=== PATIENT | female | born 1980 | race Caucasian/White ===

== ENCOUNTER 2019-07-10 10:30 | Outpatient (RCR) | payer OTHER, BC, SELFPAY ==
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
--- NOTE | 2019-07-02 11:08 | PCOTNOTE ---
Patient called and cancelled OT tx today. She received an injection at her doctor appt. today and he advised that she cancelled therapy today.
--- NOTE | 2019-07-10 11:29 | OTOPEVAL ---
OCCUPATIONAL THERAPY DISCHARGE SUMMARY 07/10/2019 Thank you for referring this patient to [facility] [place]. As described below, Ruby has improved with AROM of the (R) forearm, wrist, and hand. She continues to have limitations due to pain, which made minimal improvement with skilled intervention. Today Ruby is independent with ROM and strengthening HEP and has a 3 week plan to wean off the brace and incorporate the (R) UE into more functional, every-day tasks. Please review, sign, date and return this discharge note YAHIR. I agree with and certify that the following plan of care is medically necessary. Referring Physician Date Referring Provider: Austin Amos MD *OT Outpatient Re-Evaluation Diagnosis Chronic right wrist pain Onset Mar 2017 Additional Evaluation Detail Ruby has been participating in outpatient OT since 06/13/19. Therapy has included aquatic treatment for CRPS and land treatment for use of modalities, manual therapy, ROM exercises, and strengthening to facilitate return to functional use. Subjective Information Ruby reports everything is Query Text:As Reported By Patient/ gotten better - noting Family improvements in flexibility, ROM, and strength. She has been trying to wean off the brace, but still wears it at work or in crowded places. Pain Assessment Timing of Pain Assessment Timing of Pain Assessment Re-assessment Pain Scale Pain Scale Used Numeric (1 - 10) Self Report Pain Assessment Right Wrist(s) Reported Pain Level 3 Pain Description Aching,Dull,Soreness,Tightness Pain Frequency Chronic Current Pain Intensity 3 Lowest Pain Intensity 3 Greatest Pain Intensity 6 Pain Score Pain Score 3: Self Report Additional Pain Score Comments Pain at rest has remained at 3 /10 since SOC. Pain at worst has reduced from 9/10 to 6/10 since SOC. With gentle AROM pain increases to 4/10. With PROM pain increases to 6/ 10. Upper Extremity Range of Motion Elbow/Forearm Range of Motion Right Forearm Supination - Active 70 Forearm Supination - Passive 80 Forearm Pronation - Active 85 Elbow/Forearm Range of Motion Comments Supination improved from 45* Pronation improved from 85* Wrist Range of Motion Right Wrist Flexion - Active
== END 2019-07-13 15:36 | disposition home or self-care (01) ==
LOC: ANHOT 10:30
PROVIDERS: PCP Internal Medicine
DX: M25.531 Pain in right wrist (principal); G89.29 Other chronic pain
CPT/HCPCS: 97018; 97035; 97110; 97113; 97140; 97165

== ENCOUNTER 2020-02-28 07:26 | Outpatient (RCR) | payer OTHER, BC, SELFPAY ==
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
--- NOTE | 2020-03-25 09:07 | OTOPEVAL ---
OCCUPATIONAL THERAPY RE-EVALUATION AND PROGRESS REPORT Thank you for referring Ruby Mary to [facility].? The patient is scheduled to be seen for continued occupational therapy?2x/week for 4 weeks beginning week of 04/07/20 due to scheduling conflicts. Please review, sign, date and return this Re-Evaluation Report YAHIR. I agree with and certify that the following plan of care is medically necessary. Referring Physician Date Referring Provider: Austin Amos MD *OT Outpatient Re-Evaluation Evaluation Information Problem Diagnosis Wrist pain s/p right ulnar sensory nerve neurolysis 02/12 Additional Evaluation Detail Ruby has been participating in outpatient OT s/p nerve neurolysis. OT has been focusing on ROM, nerve gliding , scar mgmt, and desensitization. Subjective Information Patient reports that her ROM Query Text:As Reported By Patient/ has improved, noting improved Family supination and wrist motions. She states her tightness is improved as she has more flexibility. She continues to have shooting pain to the tip of the pinky with ulnar deviation. She also notes that her sensitivity improved from severe to moderate . Pain Assessment Timing of Pain Assessment Timing of Pain Assessment Re-assessment Pain Scale Pain Scale Used Numeric (1 - 10) Self Report Pain Assessment Right Wrist(s) Reported Pain Level 3 Pain Description Soreness,Tightness Pain Frequency Continuous Lowest Pain Intensity 3 Greatest Pain Intensity 10 Pain Score Pain Score 3: Self Report Additional Pain Score Comments Patient states her pain is the worst at night, noting an instance of having 10/10 pain at night, describing the pain as burning and on fire . Interventions Used Interventions Used By Clinicians Exercise,Heat Upper Extremity Range of Motion Elbow/Forearm Range of Motion Right Elbow Flexion - Active 140 Elbow Extension - Active 0 Forearm Supination - Active 65 Forearm Supination - Passive 75 Forearm Pronation - Active 75 Forearm Pronation - Passive 85 Elbow/Forearm Range of Motion Comments -Active supination improved by 25* -Passive supination improved by 15* -Active pronation im
--- NOTE | 2020-04-16 10:33 | PCOTNOTE ---
Patient never called to schedule her appointments. Called the patient today and she reports that she was diagnosed with COVID-19. Informed her that her re-eval/POC update date falls on 04/30/20 and she will need to be seen and/or reassessed by that date. She plans to call to schedule when her quarantine is over.
--- NOTE | 2020-05-08 11:31 | OTOPEVAL ---
OCCUPATIONAL THERAPY DISCHARGE NOTE 05/08/2020 Ruby was initially evaluated on 02/28/20 and seen for 5 subsequent treatment visits. A re-evaluation report was sent 03/25/20 (please refer to this for more detailed progress update). Ruby has not returned for treatment since this re-evaluation on 03/25/20 due to COVID-19. Ruby reports that she has been completing her AROM, PROM, and gentle strengthening (with 2 lbs weights) regularly. She has also been working on her desensitization HEP. She states that due to getting a new job she will be unable to return for therapy sessions, but is also independent and doing well with her home program. The goals have not been assessed since 03/25/20. Discharging today with goals not met. Thank you for referring Ruby Mary to [facility]. Please review, sign, date and return this D/C Note YAHIR. I agree with and certify that the following plan of care is medically necessary. Referring Physician Date Referring Provider: Austin Amos MD
== END 2020-05-08 11:57 | disposition home or self-care (01) ==
LOC: ANHOT 07:26
PROVIDERS: PCP Internal Medicine
DX: G56.41 Causalgia of right upper limb (principal); M25.531 Pain in right wrist
CPT/HCPCS: 97018; 97110; 97140; 97165

== ENCOUNTER → 2020-03-20 11:13 | Outpatient (CLI) | payer BC, SELFPAY ==
--- NOTE | ~2020-03-20 | MM_ITS ---
EXAMINATION: MM screening [facility] BI w anuj HISTORY: Screening mammogram TECHNIQUE: Craniocaudal and mediolateral oblique 3-D tomosynthesis images were obtained and synthetic 2-D images were generated. CAD analysis was submitted and interpreted. COMPARISON: 05/30/2018, 06/05/2014 BREAST PARENCHYMAL COMPOSITION: There are scattered areas of fibroglandular density. FINDINGS: There is no evidence of suspicious mass, calcification, or architectural distortion to sugg est malignancy in either breast. There has been no suspicious interval change. IMPRESSION: 1. No mammographic evidence of malignancy. 2. Recommend routine screening mammography in one year. BI-RADS Category 1: Negative Reviewed, dictated and finalized at location [facility]. [employer]
== END ==
PROVIDERS: PCP Physician Assistant; Visit Provider Physician Assistant
DX: Z12.31 Encounter for screening mammogram for malignant neoplasm of breast (principal)
CPT/HCPCS: 77063; 77067

== ENCOUNTER 2020-05-28 20:53 | Inpatient (IN) | payer BC, SELFPAY ==
--- NOTE | ~2020-05-28 | CT_ITS ---
EXAMINATION: CT abdomen pelvis w con DATE: 05/28/2020 21:52 INDICATION: Epigastric abdominal pain radiating to back following ERCP at [facility]. TECHNIQUE: Computed tomography (CT) of the abdomen and pelvis was performed with 100 cc Omnipaque 350 intravenous contrast. Automated exposure control and iterative reconstruction technique were employe d. Exam dose: 980.54 mGy-cm total exam DLP. COMPARISON: 01/22/2019 CT abdomen pelvis FINDINGS: Normal heart size. No pericardial or pleural effusion. There is discoid scarring in the mid dle lobe and left lower lobe, stable since 01/22/2019. No consolidation at the lung bases. Relatively stable approximately 2.3 cm hypoattenuating central right hepatic lesion. Several probable subcentimeter hepatic cysts. There is pneumobilia, new finding since 01/22/2019. Status post cholecystectomy. No interval hepatic space-occupying mass lesion since 01/22/2019. Normal splenic size. No pancreatic m ass lesion, calcification or ductal dilatation. Normal morphology of the adrenal glands. No renal mass lesion or urinary tract calculus or hydroureteronephrosis. The uterus, adnexal areas and urinary bladder are unremarkable. Normal caliber of the abdominal aorta. No intraperitoneal or retroperitoneal or pelvic mass lesion or adenopathy. There is mild free fluid in the dependent left pelvic area, stable since 01/22/2019. The appendix is not visualized, likely secondary to appendectomy. No bowel obstruction, bowel wall thickening, pneumatosis or intraperitoneal free air. Small fat-containing umbilical hernia. IMPRESSION: Pneumobilia, new since 01/22/2019 Status post cholecystectomy Stable mild free fluid collection in the dependent left pelvis, not significantly changed since 2018 Reviewed, dictated and finalized at [facility]. Reviewed, dictated and finalized at [facility]. 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
[2020-05-28 20:58] VITALS: BP 170/95; PULSE 73; RESP 14; TEMP 36.5; O2SAT 100
[2020-05-28] MEDS: MORPHINE SULFATE (*CRX) 4 MG/ML INJ IV PUSH (21:06)
[2020-05-28] MEDS: SODIUM CHLORIDE 0.9% IV 1,000 ML 999 ML IV CONT (21:06)
[2020-05-28 21:13] LABS: Basophils Percent Auto 0.3 % (0.2-1.2); Eosinophils Absolute Auto 0.2 K/mm3 (0-0.3); Eosinophils Percent Auto 2.1 % (0-4.4); Hematocrit 42.4 % (37.0-47.0); Hemoglobin 14.3 g/dL (12.0-15.0); Immature Granulocyte Absolute 0.01 K/mm3 (0.00-0.031); Immature Granulocyte Percent A 0.1 % (0-0.5); Lymphocytes Absolute Auto 2.23 K/mm3 (0.9-3.2); Lymphocytes Percent Auto 31.7 % (18.3-44.2); Mean Corpuscular HGB Conc 33.7 g/dl (32-36); Mean Corpuscular Hemoglobin 29.9 pg (26-34); Mean Corpuscular Volume 88.7 fl (80-100); Mean Platelet Volume 9.9 fl (7.4-10.4); Monocytes Absolute Auto 0.6 K/mm3 (0.1-0.6); Monocytes Percent Auto 7.8 % (2.6-8.5); Neutrophils Absolute Auto 4.1 K/mm3 (1.3-6.7); Platelet Count Result 221 k/mm3 (150-375); Red Blood Count 4.78 M/mm3 (4.2-5.4)
[2020-05-28 21:23] LABS: Partial Thromboplastin Time 28.4 SECONDS (22.3-36.8); Prothrombin Time 13.7 Seconds (11.1-14.7)
[2020-05-28 21:26] LABS: Alanine Aminotransferase 16 U/L (4-35); Albumin Level 4.3 g/dL (3.5-5.1); Alkaline Phosphatase 110 U/L (38-126); Anion Gap 8 mmol/L (8-16); Aspartate Amino Transferase 46 U/L (14-36); Bilirubin,Total 0.9 mg/dL (0.2-1.3); Blood Urea Nitrogen 4 mg/dL (7-17); Calcium 9.3 mg/dL (8.4-10.2); Carbon Dioxide 27 mmol/L (22-30); Chloride 103 mmol/L (98-107); Estimated CRCL calculation 110 ml/min; Estimated Glomerular Filt Rate > 60; Glucose 95 mg/dL (65-105); Potassium 3.6 mmol/L (3.4-5.0); Sodium 138 mmol/L (137-145)
[2020-05-28 21:40] LABS: Lipase 7074 U/L (23-300)
--- NOTE | 2020-05-28 21:44 | ED.GENADULT ---
HPI - General Adult General Chief complaint: Unspecified Stated complaint: Pain after procedure Time Seen by Provider: 05/28/20 21:00 History of Present Illness HPI narrative: Patient is a 40-year-old female who presents ER with sudden onset epigastric pain. Occurred this evening at 8 PM just prior to arrival. Epigastric and sharp. Radiates to her back. Patient underwent ERCP today for biliary stent removal. Patient reports having a strawberry banana smoothie earlier this evening. Denies fevers or chills or sweats. Pain is worse with any type of movement. Has not found any alleviating factors. She did take 1 tramadol prior to arrival. Related Data Home Medications Medication Instructions Recorded Confirmed oxycodone 04/21/19 04/23/20 dicyclomine 10 mg capsule 10 mg PO TID 03/20/20 04/23/20 famotidine 40 mg tablet 40 mg PO DAILY 03/20/20 04/23/20 zonisamide 50 mg capsule 50 mg PO DAILY 03/20/20 04/23/20 Allergies Allergy/AdvReac Type Severity Reaction Status Date / Time gabapentin Allergy Intermediate Nausea and Verified 05/28/20 21:02 Vomiting levofloxacin Allergy Intermediate Dizziness Verified 05/28/20 21:02 fentanyl Allergy Unknown Itching Verified 05/28/20 21:02 tramadol Allergy Unknown Unknown Verified 05/28/20 21:02 hydrocodone AdvReac Intermediate Itching Verified 05/28/20 21:04 sumatriptan AdvReac Intermediate Dyspnea / Verified 05/28/20 21:02 SOB Review of Systems Review of Systems: All systems reviewed & are unremarkable except as noted in HPI and below Constitutional: Constitutional: Denies chills and Denies fever(s) Gastrointestinal: Gastrointestinal: Reports abdominal pain, Denies nausea and Denies vomiting PMFSH Past Medical History Medical History Anxiety Asthma Benign brain tumor Bronchitis Chlamydia Endometriosis GERD (gastroesophageal reflux disease) History of torn meniscus of right knee Menometrorrhagia Migraines Peripheral neuropathy Nerve damage to rt hand Trichomonas infection Surgical History Surgical History History of appendectomy History of brain surgery Brain tumor removal History of cholecystectomy History of colonoscopy History of right knee surgery History of tonsillectomy History of tubal ligation Family History Family History Father Hypertension Family history of chronic obstructive pulmonary disease Mother Hypertension Sibling Patient's brother is in good health Other Family history of elevated blood lipids Family history of malignant neoplasm Social History Social History Smoking packs per day: 1 Smoking cigarettes per day: 20.0 Years smoked: 20 Smoking pack-years: 20.00 Smoking status: Former smoker Second hand tobacco smoke exposure: No Smoking end date: 05/02/12 Alcohol intake: current Gender identity (if verbalized by the patient): Female Exam Narrative: Exam Narrative: GENERAL: Well-appearing, well-nourished, and in no acute distress. HEAD: Normocephalic, atraumatic. ENT: Mucous membranes moist. CHEST: Clear to auscultation. No respiratory distress. HEART: Regular rate and rhythm. Normal peripheral pulses. ABDOMEN: Soft, moderate epigastric tenderness with guarding, nondistended. EXTREMITIES: Normal range of motion. No edema. SKIN: Warm, dry, no rash. NEURO: Alert and oriented x3. PSYCH: Normal mood and affect. Course Course Emergency Course: Discussed with Nurse Coordinator Anitha with Dr. Butcher. No intervention required. If still having severe persistent pain in 72hrs she may need a repeat CT for a fluid collection. No beds at [facility]. If need additional recommendations or have issues they would like to be contacted at [phone] ext [phone]. Vital Signs Vital signs: Vital
[2020-05-28 22:28] VITALS: BP 137/79; PULSE 83; RESP 22; O2SAT 98
[2020-05-29] VITALS (8 sets, daily range): BP systolic 127–161; BP diastolic 62–101; PULSE 62–89; RESP 16–20; TEMP 36.5–36.6; O2SAT 99–100; BMI 34.2
[2020-05-29] MEDS: MORPHINE SULFATE (*CRX) 4 MG/ML INJ IV PUSH ×3 (00:10→08:21)
--- NOTE | 2020-05-29 01:00 | PC.NURSE ---
This patient, Ruby Mary, was admitted to [facility] Surg Room 309-01. Patient/family oriented to hospital policies and general routines including ID bracelet, bed and alarms, visiting hours, pain management, procedures, bathroom and other care routines, personal items, smoking policy, room service/diet, and visiting hours. Information on how to activate the Rapid Response Team has been discussed. Patient/Family are encouraged to report perceived risks to care and to ask questions if they do not understand what they are told or what they should do.
[2020-05-29] MEDS: SODIUM CHLORIDE 0.9% IV 1,000 ML 150 ML IV CONT ×3 (01:34→17:00)
[2020-05-29] MEDS: PANTOPRAZOLE SODIUM IV 40 MG VIAL IV PUSH ×2 (08:21→20:57)
[2020-05-29] MEDS: DICYCLOMINE HCL 10 MG CAPSULE PO ×3 (08:21→17:35)
--- NOTE | 2020-05-29 10:38 | PM.IMHP ---
H&P: HPI History of Present Illness Date/Time: 05/29/20 10:10 Chief Complaint: Abdominal pain Narrative: Date of Service 05/29/20 1010 The supervising physician for this history and physical is Dr Meghan Herrera. Ms. 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 She underwent ERCP with biliary stent placement for treatment of papillary stenosis on 05/26/[address] Butcher at [facility], then underwent her scheduled biliary stent removal yesterday 05/28/20. She reports she got home from [facility] around 5:00 p.m. yesterday, had a strawberry banana smoothie and went to bed to rest. She describes a sudden onset of severe epigastric/RUQ abdominal pain that woke her out of sleep around 8:30pm and took her breath away, radiated to her back with associated nausea and shortness of breath. She has been having issues since 2015 with intermittent nausea with any oral intake of foods, but in the last 5 months this has been a worsening, persistent issue for which she has been following with Dr Butcher and his PA Jessica Jamison at [facility]. Her evaluation began with an endoscopic ultrasound in January 2020 which demonstrated biliary papillary stenosis. She then underwent the stent placement as mentioned above. She reports nausea still which is a little improved, vomited last at [facility] yesterday but no emesis here. Dr Butcher's nurse was contacted by ED provider who mentioned there were no available beds at [facility], no intervention was indicated at this time, and if her pain should continue to be severe at the 72-hr arabella that he would recommend a repeat CT abdomen/pelvis to rule out fluid collection or abscess. Routine labs are grossly normal aside from lipase [address] abd/pelvis on arrival shows pneumobilia but no other acute findings, pancreas appears normal. She is admitted to the hospitalist service for pain control and to monitor elevated lipase. Review of Systems Review of Systems: Narrative: Sudden onset epigastric/RUQ pain several hours after ERCP for biliary stent removal. She describes nausea, no vomiting today. Pain is somewhat improved compared to last night but still present. She denies chest pain. She had shortness of breath with onset of pain but none today. No cough. Twelve systems were reviewed with pertinent positives and negatives as per HPI. Except as documented, all other systems were reviewed and are negative. [facility] Past Medical History Medical History Anxiety Asthma Benign brain tumor Biliary stenosis Bronchitis Chlamydia Endometriosis GERD (gastroesophageal reflux disease) History of torn meniscus of right knee Menometrorrhagia Migraines Peripheral neuropathy Nerve damage to rt hand Trichomonas infection Surgical History Surgical History History of appendectomy 2019 History of brain surgery Brain tumor removal - benign. 2013 History of cholecystectomy 2016 History of colonoscopy History of right knee surgery Due to right meniscal tear - as a teenager History of tonsillectomy 2010 History of tubal ligation 2015 Family History Family History Father Hypertension Family history of chronic obstructive pulmonary disease Mother Hypertension Sibling Patient's brother is in good health Other Family history of elevated blood lipids Family history of malignant neoplasm Social History Social History (Updated 05/29/20 @ 15:22 by Guillermina Wise PA-C) Social History: Ms. Mary lives at home with her and children in [place]. 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 She reports occasional alcohol use b
--- NOTE | 2020-05-29 12:07 | PCNSR ---
On 05/29/20, the student, Tamie Melara, provided care and [facility]. I have reviewed the student's documentation and agree with the findings.
[2020-05-29] MEDS: MORPHINE SULFATE (*CRX) 4 MG/ML INJ 2 MG IV PUSH (13:46)
--- NOTE | 2020-05-29 15:57 | PC.NURSE ---
Patient transferred to room 218. Report given to JERE Linton. All belongings sent with patient.
[2020-05-29] MEDS: traMADol HCL (*CRX) 50 MG TABLET PO (17:37)
[2020-05-29] MEDS: MORPHINE SULFATE (*CRX) 2 MG/ML INJ IV PUSH ×2 (18:39→23:41)
[2020-05-29] MEDS: ZONISAMIDE 25 MG CAPSULE 50 MG PO (21:14)
[2020-05-30] MEDS: SODIUM CHLORIDE 0.9% IV 1,000 ML 100 ML IV CONT ×3 (01:35→23:34)
[2020-05-30] MEDS: MORPHINE SULFATE (*CRX) 2 MG/ML INJ IV PUSH ×3 (03:57→18:51)
[2020-05-30] MEDS: ONDANSETRON INJ 4 MG/2 ML VIAL IV PUSH ×3 (04:04→19:55)
[2020-05-30 05:01] LABS: Basophils Percent Auto 0.4 % (0.2-1.2); Eosinophils Absolute Auto 0.1 K/mm3 (0-0.3); Eosinophils Percent Auto 1.8 % (0-4.4); Hemoglobin 12.4 g/dL (12.0-15.0); Immature Granulocyte Absolute 0.01 K/mm3 (0.00-0.031); Immature Granulocyte Percent A 0.2 % (0-0.5); Lymphocytes Absolute Auto 1.25 K/mm3 (0.9-3.2); Mean Corpuscular HGB Conc 33.5 g/dl (32-36); Mean Corpuscular Volume 89.4 fl (80-100); Monocytes Absolute Auto 0.3 K/mm3 (0.1-0.6); Monocytes Percent Auto 6.5 % (2.6-8.5); Neutrophils Absolute Auto 2.8 K/mm3 (1.3-6.7); Neutrophils Percent Auto 63.1 % (45.5-73.1); Platelet Count Result 165 k/mm3 (150-375); Red Blood Count 4.14 M/mm3 (4.2-5.4); White Blood Count 4.5 K/mm3 (4.5-10.0)
[2020-05-30 05:20] LABS: Alanine Aminotransferase 15 U/L (4-35); Albumin Level 3.4 g/dL (3.5-5.1); Alkaline Phosphatase 85 U/L (38-126); Anion Gap 6 mmol/L (8-16); Aspartate Amino Transferase 23 U/L (14-36); Bilirubin,Total 0.6 mg/dL (0.2-1.3); Blood Urea Nitrogen 3 mg/dL (7-17); Calcium 8.3 mg/dL (8.4-10.2); Carbon Dioxide 23 mmol/L (22-30); Chloride 107 mmol/L (98-107); Estimated CRCL calculation 125 ml/min; Estimated Glomerular Filt Rate > 60; Glucose 74 mg/dL (65-105); Lipase 100 U/L (23-300); Magnesium 1.4 mg/dL (1.6-2.3); Potassium 3.6 mmol/L (3.4-5.0); Sodium 136 mmol/L (137-145)
[2020-05-30 06:00] VITALS: BP 144/75; PULSE 75; RESP 18; TEMP 36.4; O2SAT 100
[2020-05-30] MEDS: MAGNESIUM SULFATE 3GM/D5W100ML 3 GM/100 ML BAG IVPB (08:18)
[2020-05-30] MEDS: DICYCLOMINE HCL 10 MG CAPSULE PO ×2 (08:28→16:39)
[2020-05-30] MEDS: ENOXAPARIN 40 MG/0.4 ML SYRINGE SUB-Q (08:53)
[2020-05-30] MEDS: PANTOPRAZOLE SODIUM IV 40 MG VIAL IV PUSH ×2 (09:53→20:00)
[2020-05-30] MEDS: oxyCODONE HCL (*CRX) 5 MG TAB IR PO (11:04)
[2020-05-30] MEDS: LORATADINE 10 MG TABLET PO (11:06)
--- NOTE | 2020-05-30 11:15 | PM.IMPN ---
Progress Note: A&P Assessment and Plan (1) Abdominal pain: Qualifiers: Abdominal location: right upper quadrant Qualified Code(s): R10.11 - Right upper quadrant pain Code(s): R10.9 - Unspecified abdominal pain Status: Acute Assessment and Plan: Sudden onset of epigastric, RUQ abdominal pain occurred several hours after ERCP and biliary stent removal 05/[address] Butcher at [facility]. ER provider spoke with Dr Butcher's office and it was recommended no intervention is needed at this time and her symptoms should improve gradually. He recommended if her pain is still severe in 72hrs from onset, consider repeat CT abdomen to ensure no fluid collection/abscess formation. CT abdomen/pelvis shows pneumobilia, otherwise no acute findings. Pancreas is unremarkable. At this point it is felt her pain is related with biliary stent removal and hopefully her symptoms will be self-limiting. Continue supportive care with pain control, IV hydration, and bowel rest. Monitor for clinical improvement. Clear liquid diet, advance as tolerated to low fat diet. Will try oxycodone today in attempts to wean from IV narcotics. (2) Biliary stenosis: Code(s): K83.1 - Obstruction of bile duct Status: Chronic Assessment and Plan: She has been following with hepatobiliary specialist at [facility] due to ongoing issues with nausea for months. She was diagnosed with papillary stenosis and underwent ERCP with biliary stent placement by Dr Butcher at [facility] 05/26/20 then subsequent removal of stents 05/28/20. According to her discharge papers she has with her, the procedure went as planned and there was good drainage noted after stent removal as expected. Follow up with Dr Butcher and his PAJessica in short-interval follow up after discharge. (3) Elevated lipase: Code(s): R74.8 - Abnormal levels of other serum enzymes Status: Acute Assessment and Plan: Lipase 7074 on arrival, now down to 100 today. This was an expected elevation after an ERCP. Her pancreas is normal on CT and I do not suspect she has acute pancreatitis at this time. Bilirubin and LFTs grossly normal aside from a mildly elevated AST at 46 yesterday, resolved today. We will continue supportive care with bowel rest and IV fluids. Monitor lipase and LFTs. (4) GERD (gastroesophageal reflux disease): Qualifiers: Esophagitis presence: esophagitis presence not specified Qualified Code(s): K21.9 - Gastro-esophageal reflux disease without esophagitis Code(s): K21.9 - Gastro-esophageal reflux disease without esophagitis Status: Chronic Assessment and Plan: Continue protonix. (5) Asthma: Qualifiers: Asthma severity: unspecified severity Asthma persistence: unspecified Asthma complication type: unspecified Qualified Code(s): J45.909 - Unspecified asthma, uncomplicated Code(s): J45.909 - Unspecified asthma, uncomplicated Status: Chronic Assessment and Plan: No evidence of respiratory distress. She can use Symbicort to sub for non-formulary Breo and albuterol if needed for shortness of breath. Subjective Date/time seen: 05/30/20 1030 Interval history: Ms. Mary is a 40yo F admitted for abdominal pain s/p ERCP with biliary stent removal. She is still having abdominal cramping but overall improved from when she came in. She tried some minimal amount of clear liquid tray (jello) for breakfast and had abdominal cramping pretty shortly after, same thing happened at lunch time. She denies nausea or vomiting today. She denies chest pain or shortness of breath. Review of Systems Review of Systems: All systems reviewed & are unremarkable except as noted in HPI and below Exam Narr
[2020-05-30 14:00] VITALS: BP 145/73; PULSE 70; RESP 16; TEMP 36.5; O2SAT 99
[2020-05-30] MEDS: ZONISAMIDE 25 MG CAPSULE 50 MG PO (20:03)
[2020-05-30 22:00] VITALS: BP 142/71; PULSE 70; RESP 18; TEMP 36.2; O2SAT 100
[2020-05-31] MEDS: MORPHINE SULFATE (*CRX) 2 MG/ML INJ IV PUSH (04:44)
[2020-05-31] MEDS: ONDANSETRON INJ 4 MG/2 ML VIAL IV PUSH ×3 (04:47→14:10)
[2020-05-31 05:27] LABS: Alanine Aminotransferase 11 U/L (4-35); Albumin Level 3.1 g/dL (3.5-5.1); Alkaline Phosphatase 73 U/L (38-126); Anion Gap 1 mmol/L (8-16); Aspartate Amino Transferase 19 U/L (14-36); Bilirubin,Total 0.5 mg/dL (0.2-1.3); Blood Urea Nitrogen 3 mg/dL (7-17); Calcium 8.1 mg/dL (8.4-10.2); Carbon Dioxide 27 mmol/L (22-30); Chloride 109 mmol/L (98-107); Estimated CRCL calculation 125 ml/min; Estimated Glomerular Filt Rate > 60; Glucose 81 mg/dL (65-105); Lipase 79 U/L (23-300); Magnesium 1.7 mg/dL (1.6-2.3); Potassium 3.6 mmol/L (3.4-5.0); Sodium 137 mmol/L (137-145)
[2020-05-31 05:43] VITALS: BP 134/93; PULSE 70; RESP 16; TEMP 36.1; O2SAT 100
[2020-05-31] MEDS: ENOXAPARIN 40 MG/0.4 ML SYRINGE SUB-Q (08:28)
[2020-05-31] MEDS: LORATADINE 10 MG TABLET PO (08:28)
[2020-05-31] MEDS: MAGNESIUM OXIDE 200 MG TABLET PO (08:28)
[2020-05-31] MEDS: PANTOPRAZOLE SODIUM IV 40 MG VIAL IV PUSH (08:28)
[2020-05-31] MEDS: DICYCLOMINE HCL 10 MG CAPSULE PO ×2 (08:28→12:23)
[2020-05-31] MEDS: SODIUM CHLORIDE 0.9% IV 1,000 ML 100 ML IV CONT (09:32)
[2020-05-31 14:00] VITALS: BP 145/82; PULSE 68; RESP 18; TEMP 36.2; O2SAT 100
--- NOTE | 2020-05-31 14:08 | PM.DS ---
DS: Admitting Diagnosis Admitting Diagnosis Admitting Diagnosis: Abdominal pain DS: Discharge Diagnosis Discharge Diagnosis (1) Abdominal pain: Qualifiers: Abdominal location: right upper quadrant Qualified Code(s): R10.11 - Right upper quadrant pain Code(s): R10.9 - Unspecified abdominal pain Status: Acute Assessment and Plan: Date of Admission 05/29/20 Date of Discharge/DOS 05/31/20 Ms. 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 She underwent ERCP with biliary stent placement for treatment of papillary stenosis on 05/26/[address] Butcher at [facility], then underwent her scheduled biliary stent removal 05/28/20. She reports she got home from [facility] around 5:00 p.m., had a strawberry banana smoothie and went to bed to rest, then experienced sudden onset of severe epigastric/RUQ abdominal pain that woke her out of sleep a few hours later around 8:30pm which took her breath away, radiated to her back with associated nausea and shortness of breath. She has been having issues since 2016 with intermittent nausea with any oral intake of foods, but in the last 5 months this has been a worsening, persistent issue for which she has been following with Dr Butcher and his PA Jessica Jamison at [facility]. Dr Butcher's nurse was contacted by ED provider who mentioned there were no available beds at [facility], no intervention was indicated at this time, and if her pain should continue to be severe at the 72-hr arabella that he would recommend a repeat CT abdomen/pelvis to rule out fluid collection or abscess. Routine labs are grossly normal aside from lipase [address] abd/pelvis on arrival shows pneumobilia likely from her instrumentation (ERCP) earlier that day but no other acute findings, and pancreas appears normal. She was admitted to the hospitalist service for pain control and to monitor elevated lipase. She was treated with supportive care to include bowel rest, IV hydration, antiemetics, and pain medications. She did continue to have some right upper abdominal cramping with even minimal bites of jello. Day of discharge, she had much less cramping but did describe nausea with even small amounts of food, improved with Zofran. No emesis here. Lipase improved from 7074 to 100 then to 74 on day of discharge. It is suspected that she does not have pancreatitis at this time given normal pancreas on CT imaging and elevated lipase being an expected finding within several hours after her ERCP. Bilirubin and LFTs remained grossly normal. No leukocytosis or fevers or CT findings to suggest infectious process. Ultimately, it is felt her abdominal pain is an exacerbation of an expected discomfort after her biliary stent placement and removal. She is encouraged to follow up with Dr Butcher or his PA, Jessica, as soon as possible. She is feeling improved and is hemodynamically stable for discharge on 05/31/20. Sudden onset of epigastric, RUQ abdominal pain occurred several hours after ERCP and biliary stent removal 05/[address] Butcher at [facility]. ER provider spoke with Dr Butcher's office and it was recommended no intervention is needed at this time and her symptoms should improve gradually. CT abdomen/pelvis shows pneumobilia, otherwise no acute findings. Pancreas is unremarkable. At this point it is felt her pain is related with biliary stent removal and hopefully her symptoms will be self-limiting. Treated with supportive care with pain control, IV hydration, and bowel rest. Monitored for clinical improvement. (2) Biliary stenosis: Code(s): K83.1 - Obstruction of bile duct Status: Chronic Assessment and Plan:
== END 2020-05-31 15:10 | disposition home or self-care (01) | DRG 947 ==
LOC: ANHED 05-29 00:06 → ANH3MEDSUR 05-29 00:22 → ANHTRC 05-30 13:13 → ANH3MEDSUR 06-03 16:40 → ANHTRC 06-03 16:40
PROVIDERS: Physician Assistant; Admitting Provider Internal Medicine; Emergency Provider Emergency Medicine; PCP Physician Assistant; Visit Provider Family Medicine
DX: G89.18 Other acute postprocedural pain (principal); K83.1 Obstruction of bile duct; R10.11 Right upper quadrant pain; R74.8 Abnormal levels of other serum enzymes; K21.9 Gastro-esophageal reflux disease without esophagitis; J45.909 Unspecified asthma, uncomplicated; G43.909 Migraine, unspecified, not intractable, without status migrainosus; G62.9 Polyneuropathy, unspecified; F41.9 Anxiety disorder, unspecified; Z79.899 Other long term (current) drug therapy; Z87.891 Personal history of nicotine dependence
CPT/HCPCS: 36415; 74177; 80048; 80053; 80076; 83690; 83735; 85025; 85610; 85730; 94640; 96361; 96374; 96375; 96376; 99285; A9270; C9113; G0378; J1650; J2270; J2405; J3475; J7030; Q9967

== ENCOUNTER → 2022-01-30 08:37 | Outpatient (CLI) | payer BC, SELFPAY ==
--- NOTE | ~2022-01-30 | MM_ITS ---
EXAMINATION: MM screening [facility] BI w anuj HISTORY: Screening mammogram TECHNIQUE: Craniocaudal and mediolateral oblique 3-D tomosynthesis images were obtained and synthetic 2-D images were generated. CAD analysis was submitted and interpreted. COMPARISON: 03/20/2020, 05/30/2018, 06/05/2014 BREAST PARENCHYMAL COMPOSITION: There are scattered areas of fibroglandular density. FINDINGS: There is no suspicious mass, calcification, or architectural distortion to suggest malignan cy in either breast. There has been no suspicious interval change. IMPRESSION: 1. No mammographic evidence of malignancy. 2. Recommend routine screening mammography in one year. BI-RADS Category 1: Negative Reviewed, dictated and finalized at location A.
== END ==
PROVIDERS: PCP Physician Assistant; Visit Provider Physician Assistant
DX: Z12.31 Encounter for screening mammogram for malignant neoplasm of breast (principal)
CPT/HCPCS: 77063; 77067

== ENCOUNTER 2022-04-09 15:37 | Outpatient (CLI) | payer BC, SELFPAY ==
[2022-04-09 16:50] LABS: Influenza A QL RT-PCR Negative (Negative); Influenza B QL RT-PCR Negative (Negative); RSV RNA, RT-PCR Negative (Negative); SARS-CoV-2 RNA PCR Positive
== END 2022-04-09 15:38 | disposition home or self-care (01) ==
LOC: ANHLAB 15:39
PROVIDERS: PCP Physician Assistant; Visit Provider Physician Assistant
DX: U07.1 COVID-19 (principal)
CPT/HCPCS: 87637

== ENCOUNTER 2023-07-09 09:39 | Outpatient (CLI) | payer BC, SELFPAY ==
--- NOTE | ~2023-07-09 | MM_ITS ---
EXAMINATION: MM screening [facility] BI w anuj HISTORY: Screening mammogram TECHNIQUE: Craniocaudal and mediolateral oblique 3-D tomosynthesis images were obtained and synthetic 2-D images were generated. CAD analysis was submitted and interpreted. COMPARISON: 01/30/2022, 03/20/2020 bilateral screening mammogram examinations BREAST PARENCHYMAL COMPOSITION: There are scattered areas of fibroglandular density. FINDINGS: There is no evidence of suspicious mass, calcification, or architectural distortion to sugg est malignancy in either breast. There has been no suspicious interval change. IMPRESSION: 1. No mammographic evidence of malignancy. 2. Recommend routine screening mammography in one year. BI-RADS Category 1: Negative Reviewed, dictated and finalized at location A.
== END 2023-07-09 09:40 ==
LOC: MICIMG 09:40
PROVIDERS: PCP Physician Assistant; Visit Provider Physician Assistant
DX: Z12.31 Encounter for screening mammogram for malignant neoplasm of breast (principal)
CPT/HCPCS: 77063; 77067

== ENCOUNTER 2023-07-11 17:48 | Outpatient (CLI) | payer BC, SELFPAY ==
--- NOTE | ~2023-07-11 | XR_ITS ---
Cervical Spine: AP, lateral, open-mouth views, with neutral, flexion, extension positioning Clinical History: Pain Findings: There is straightening of the normal cervical lordosis. The vertebral bodies and posterior elements appear intact. The intervertebral disc spaces are well maintained. Pre-vertebral soft tiss ues are unremarkable. Impression: Straightening of the normal cervical lordosis, otherwise unremarkable exam. Reviewed, dictated and finalized at location . Impression: Straightening of the normal cervical lordosis, otherwise unremarkable exam.
== END 2023-07-11 17:49 | disposition home or self-care (01) ==
LOC: ANHIMG 17:52
PROVIDERS: PCP Physician Assistant; Visit Provider Physician Assistant
DX: M54.2 Cervicalgia (principal)
CPT/HCPCS: 72050

== ENCOUNTER 2023-12-03 07:11 | Outpatient (CLI) | payer BC, SELFPAY ==
--- NOTE | ~2023-12-03 | US_ITS ---
EXAMINATION: US pelvic complete w TV DATE: 12/03/2023 07:59 INDICATION: Pelvic and perineal pain. TECHNIQUE: Multiple transabdominal and transvaginal sonographic images of the pelvis were obtained. COMPARISON: CT abdomen and pelvis 05/28/2020 FINDINGS: TRANSABDOMINAL ULTRASOUND: The uterus measures 7.9 x 4.0 x 4.6 cm. There is no free fluid in the pelvis. TRANSVAGINAL ULTRASOUND: The endometrial complex measures 3 mm in thickness. There are 5 mm and 19 mm intramural fibroids. The ovaries are not visualized. IMPRESSION: 1. Uterine fibroids. 2. Ovaries not visualized. Reviewed, dictated and finalized at location A.
--- NOTE | ~2023-12-03 | US_ITS ---
EXAMINATION: US thyroid DATE: 12/03/2023 07:59 INDICATION: Nontoxic goiter, unspecified. TECHNIQUE: Multiple ultrasound images of the thyroid were obtained. COMPARISON: None. FINDINGS: The right thyroid lobe measures 6.6 x 3.3 x 3.5 cm. The left thyroid lobe measures 4.8 x 1.7 x 1.5 c m. In the right thyroid lobe, there is a 4.3 cm solid, hypoechoic, wider than tall nodule with briseyda h margin without echogenic foci (TI-RADS TR4). In the left thyroid lobe, there is a 10 mm solid, hypo echoic, solid nodule with smooth margins without echogenic foci (TR4). IMPRESSION: 1. Thyroid nodules. Ultrasound-guided fine-needle aspiration of the 4.3 cm right thyroid nodule is re commended. Reviewed, dictated and finalized at location A. IMPRESSION: 1. Thyroid nodules. Ultrasound-guided fine-needle aspiration of the 4.3 cm righ t thyroid nodule is recommended.
== END 2023-12-03 07:12 ==
PROVIDERS: PCP Internal Medicine; Visit Provider Nurse Practitioner Obstetrics & Gynecology
DX: E04.2 Nontoxic multinodular goiter (principal); D25.1 Intramural leiomyoma of uterus
CPT/HCPCS: 76536; 76830; 76856

== ENCOUNTER 2024-08-10 01:32 | Day surgery (SDC) | payer BC, SELFPAY ==
[2024-08-01 15:21] VITALS: BMI 39.2
--- OUTSIDE RECORDS SUMMARY | 2024-08-10 01:34 | XMS_ITS | Clinical Summary ---
Author Organization [facility] Address [address] [place] [address] Care Team Providers Care Rehabilitation Engineer Name Role Phone Waylon Pepe Primary Care Provider Source Comments [facility],non-owned Affiliates and Associated Physician Practices is amultiple site organization consisting of ambulatory clinics and hospital sitesin [place], [place], [place] and [place]. This disclosure is being madepursuant to the Care Everywhere program and may not contain all information available regarding this patient. Last updated 18.[facility] [place] Allergies Active Allergy Reactions Criticality Noted Date Comments Fentanyl Itching Low 11/14/2017 Gabapentin Itching,Rash Medium 12/20/2017 Hydrocodone-Acetamino phen Itching Medium 02/01/2011 Levofloxacin GI Discomfort,Nausea and/or Vomiting Low 12/20/2017 Severe abdominal pain, lightheadedness Sumatriptan Shortness of Breath High 02/01/2011 SOB. Tightness in chest and throat Reaction: Medications * Be aware that medications may not be up to date on this document. Alwaysverify current medications with the patient. Medication Sig Dispensed Refills Start Date End Date Status Qulipta 60 MG TABS Take 1 (one) tablet by mouth at bedtime 07/07/2023 Active pantoprazole EC (Protonix) 40 MG tablet Take 1 (one) tablet by mouth at bedtime 07/07/2023 Active metoclopramide (Reglan) 10 MG tablet Take 1 (one) tablet by mouth as needed 09/02/2022 Active ketorolac (Toradol) 10 MG tablet Take 1 (one) tablet by mouth as needed for Pain 07/07/2023 Active Rimegepant Sulfate (NURTEC PO) Take 75 mg by mouth as needed Active Breo Ellipta 100-25 MCG/ACT inhaler Inhale 1 (one) puff by mouth once daily Active ibuprofen (Advil) 200 MG capsule Take 1 (one) capsule by mouth 4 times daily as needed for Pain Active acetaminophen (Tylenol) 500 MG tablet Take 1 (one) tablet by mouth every 4 hours as needed for Fever or Pain Maximum allowable Acetaminophen amount = 4 Grams (4000 mg) / 24 hours. Active diphenhydrAMINE HCl (BENADRYL ALLERGY CHILDRENS PO) Take 1 tablet by mouth as needed Active Active Problems No known active problems Immunizations Name Administration Dates Next Due INFLUENZA VACCINE 04/01/2020 Family History Medical History Relation Name Comments Lung Disease Father High Cholesterol Mother Hypertension Mother Relation Name Status Comments Father Mother Social History Tobacco Use Types Packs/Day Years Used Date Smoking Tobacco: Every Day Cigarettes Smokeless Tobacco: Never Tobacco Cessation:Ready to Q uit: Not Asked; Counseling Given: Not Answered Alcohol Use Standard Drinks/Week Comments Yes 2 (1 standard drink = 0.6 oz pur e alcohol) Sex and Gender Information Value Date Recorded Sex Assigned at Female 01/04/2024 11:02 AM CDT Gender Identity Female 01/04/2024 11:02 AM CDT Sexual Orientation Not on file Last Filed Vital Signs Vital Sign Reading Time Taken Comments Blood Pressure 141/89 01/11/2024 8:59 AM CDT Pulse 74 01/11/2024 8:59 AM CDT Temperature - - Respiratory Rate - - Oxygen Saturation - - Inhaled Oxygen Concentration - - Weight 119 kg (262 lb 6.4 oz) 01/11/2024 8:59 AM CDT Height 170.2 cm (5' 7 ) 01/11/2024 8:59 AM CDT Body Mass Index 41.1 01/11/2024 8:59 AM CDT Plan of Treatment Upcoming Encounters Date Type Department Care Team (Late st Contact Info) Description 01/14/2025 8:00 AM CDT Appointment [facility] [address] [place] [id number] Sincere Koenig, CASH MANAGEMENT OFFICER-SUBSTATION ENGINEER [address] [place] [address] Health Maintenance Due Date Last Done Comments COLOGUARD (AGES 45-75) - COL ON CA SCREENING [address] COLONOGRAPHY - COLON CA SCREENING 1978 FIT - COLON CA SCREENING 1978 FLEX SIG - COLON CA SCREENING 1978 LIPID TESTING 1978 MAMMOGRAM 1978 PAP SMEAR 1978 HIV SCREENING 1993 HEPATITIS C SCREENING 04/11/1996 DTAP/TDAP/TD VACCINES (1 - Tdap) 1997 HEPATITIS B VACCINE (1 of 3 - 19+ 3-dose series) 1997 PNEUMOCOCCAL VACCINE (1 of 2 - PCV) 1997 COVID-19 VACCINE (3 - 2023-2 5 season) 2024 01/24/2021, 12/27/2020 SCREENING FOR DIABETES 01/11/2024 DEPRESSION SCREENING 05/02/2024 INFLUENZA VACCINE (Season Ended) 2024 04/01/2020 ZOSTER VACCINE (1 of 2) 2028 COLONOSCOPY - COLON CA SCREENING 07/28/2033 07/29/2023 Colorectal Cancer Screening 07/28/2033 HIB VACCINE Aged Out No longer eligi ble based on patient's age to complete this topic HPV VACCINE Aged Out No longer eligi ble based on patient's age to complete this topic MENINGOCOCCAL (Group B) VACCINE SHARED DECISION-MAKING Aged Out No longer eligible based on patient's age to complete this topic MENINGOCOCCAL GROUPS A/C/Y/W VACCINE Aged Out No longer eligible b ased on patient's age to complete this topic Care Teams Rehabilitation Engineer Relationship Specialty Start Date End Date Waylon Pepe DO [address] [place] [address] PCP - General 01/25/19
--- OUTSIDE RECORDS SUMMARY | 2024-08-10 01:34 | XMS_ITS | Continuity of Care Document ---
Author Organization [facility] Address [address] [address] Phone Care Team Providers Care Loom Fixer Apprentice Name Role Phone Unavailable Unavailable Unavailable Advance Directives Directive Yes / No Effective Date File Name No Information Encounters Encounter Description Practice Location Reason(s) For Visit Diagnoses Date Provider Providers Copied on Encounter [facility], [address] [place], [place], [id number], tel:[phone] [facility] No Information 2 No Information Referring Provider: IVY HARDEN Y, [address], [place], [address]. tel:[phone] Family History Family Member Type Diagnosis Age At Onset No Information Payers Payer name Insurance type Covered green party ID Authoriza tion(s) [employer] PPO [id number] CI [id number] [facility] PPO [id number] Social History Type Description Quantity Date Captured Comments Sex Female Smoking Status No Information Chief Complaint And Reason For Visit No Information History Of Present Illness Encounter Date Complaint History Of Prese nt Illness No Information Instructions Date Instruction Additional Infor mation No Information Assessments Type Assessment Date No Information
--- OUTSIDE RECORDS SUMMARY | 2024-08-10 01:34 | XMS_ITS | Clinical Summary ---
Author Organization [facility] Address [address] [place] [address] Care Team Providers Care Crop Supervisor Name Role Phone Waylon Pepe MD Primary Care Provider +1- [phone] Katharina Alfred RN Unavailable Unavailab le Allergies Active Allergy Reactions Criticality Noted Date Comments Fentanyl Itching Low 11/14/2017 Gabapentin Rash Medium 12/20/2017 Hydrocodone-Acetamino phen Itching Medium 02/01/2011 Levofloxacin Other (See comments),Nausea & Vomiting Low 12/20/2017 Severe abdominal pain, lightheadedness Sumatriptan Shortness of breath,Other (See comments),Chest tightness High 02/01/2011 SOB. Tightness in chest and throat Reaction: Medications albuterol HFA (PROVENTIL HFA,VENTOLIN HFA,PROAIR HFA) 90 mcg/actuation inhaler Inhale 2 puffs every 6 (six) hours as needed for wheezing or shortness of breath Active BREO ELLIPTA 100-25 mcg/dose diskus inhalerIndicati ons:Maintenance Therapy for Asthma Inhale 1 puff daily before breakfast 8 Active montelukast (SINGULAIR) 10 mg tabletIndicatio ns:Maintenance Therapy for Asthma Take 10 mg by mouth nightly [address] (PROTONIX) 40 mg EC tabletIndicatio ns:asthma Take 40 mg by mouth nightly 8 Active acetaminophen (TYLENOL) 325 mg tablet Take 2 tablets (650 mg total) by mouth every 6 (six) hours as needed for pain or headaches 3 Active zonisamide (ZONEGRAN) 50 mg capsuleIndicati ons:migraine prevention Take 50 mg by mouth nightly 0 Active ibuprofen (AdviL) 200 mg tab/cap Take 4 tablet/capsule (800 mg total) by mouth every 6 (six) hours as needed for pain or headaches Resume in 10 days 1 Active erenumab-aooe (Aimovig Autoinjector) 140 mg/mL auto-injector as directed Acti ve oxyCODONE (OXY-IR) 5 mg capsule Take 1 capsule (5 mg total) by mouth every 4 (four) hours as needed for moderate pain (pain scale 5-7) Active prochlorperazin e (COMPAZINE) 10 mg tablet TAKE 1 TABLET(10 MG) BY MOUTH EVERY 6 HOURS NEEDED FOR NAUSEA OR VOMITING 90 tablet 1 Active plecanatide (Trulance) 3 mg tablet Take 3 mg by mouth daily 90 tablet 1 Active atogepant (Qulipta) 60 mg tablet Take 60 mg by mouth daily Active metoclopramide (REGLAN) 5 mg tablet Take 1 tablet (5 mg total) by mouth 4 (four) times a day Active traMADoL (ULTRAM) 50 mg tablet Take 1 tablet (50 mg total) by mouth every 6 (six) hours Active ketorolac (TORADOL) 10 mg tablet 3 Active Active Problems Problem Noted Date Diagnosed Date History of colon polyps 06/21/2023 Left ear pain 02/08/2023 Assessment & Plan (02/13/2023 12:41 PM CDT): I do not find any evidence of an ear infection or inflammation. I talked with the patient about possible reasons for ear pain that could be coming from another source. There is some potential for TMJ disorder to cause this. Also some potential for ear pain due to cervical strain or shoulder problems. Overall I think this probably TMJ related. Recommended avoiding chewing gum and avoiding chewy foods. She could consult with her dentist particularly if it worsens. Follow up with me as needed. Non-intractable vomiting 12/17/2020 Overview (12/17/2020): Added automatically from request for surgery [id number] Rectal bleeding 11/13/2020 Overview (11/13/2020): Added automatically from request for surgery [id number] Moderate malnutrition 05/28/2020 Chronic cholecystitis without calculus 0 Encounter for surgical after care following surgery of digestive system 07/02/2019 Lipoma 07/02/2019 Mass on back 07/02/2019 RUQ abdominal pain 07/02/2019 Acute appendicitis with loca lized peritonitis, without perforation, abscess, or gangrene 02/05/2019 Diverticula, appendix 02/05/2019 Migraines 05/03/2018 Complex regional pain syndro me type 2 of right upper extremity 03/16/2018 Neuralgia 03/16/2018 Other chronic pain 03/16/2018 Wrist pain, chronic, right 03/14/2018 Extensor tendon ligament laxity of right wrist 0 11/14/2017 Immunizations Immunization Administration Dates Next Due Influenza, Unspecified 04/01/2020 Surgical History Surgery Date Site/Laterality Comments TONSILLECTOMY 05/02/2009 - 05/01/2010 Tonsillectomy - -2009 (Added by TW Conv) CHOLECYSTECTOMY 12/01/2015 - 12/31/2015 TUBAL LIGATION 11/30/2014 - 12/30/2014 / endometrial ablationm CRANIOTOMY 05/02/2012 - 05/01/2013 meningioma-benign WISDOM TOOTH EXTRACTION WRIST SURGERY 2016, 2017 Right APPENDECTOMY 05/02/2018 - 05/01/2019 KNEE ARTHROSCOPY 05/02/1996 - 05/01/1997 Right Knee Surgery - Right-1996 (Added by TW Conv) OTHER SURGICAL HISTORY Crainiotomy for benign tumor COLONOSCOPY last one 2009 COLONOSCOPY 07/29/2023 Routine screening. Last screening in 2020 Medical History Medical History Date Comments Asthma well controlled Anxiety history of - whi le in college, s/p panic attacks, well controlled Asthmatic bronchitis yearly-04/02 019-last episode Migraine Nausea and vomiting after ad ministration of anesthetic agent Obesity BMI - 39 Chronic pain right forarm Fatigue due to insomnia and pain Hand pain, right Finger pain, right PONV (postoperative nausea and vomiting) GERD (gastroesophageal reflux disease) well controlled TMJ dysfunction Tinnitus Family History Medical History Relation Name Comments Hypertension Father Family history of hypertension - (Added by TW Conv) Lung disease Father Family history of lung disease - (Added by TW Conv) Alcohol abuse Maternal Grandfather Family history of alcoholism - (Added by TW Conv) Arthritis Maternal Grandmother Family history of arthritis - (Added by TW Conv) Cancer Maternal Grandmother Family history of malignant neoplasm - (Added by TW Conv) Lung disease Maternal Grandmother Family history of lung disease - (Added by TW Conv) Hypertension Mother Family history of hypertension - (Added by TW Conv) Hypertension Other 1 Hypertension - (Added by TW Conv) Breast cancer Other 2 Breast Cancer - MGM (Added by TW Conv) Hyperlipidemia Other 3 Hypercholeste rolemia - parents (Added by TW Conv) Hypertension Other 4 Family history of hypertension - (Added by TW Conv) Heart disease Other 5 Family history of cardiac disorder - (Added by TW Conv) Arthritis Other 6 Family history of arthritis - (Added by TW Conv) Alcohol abuse Other 7 Family history of alcoholism - (Added by TW Conv) Cancer Other 8 Family history of malignant neoplasm - (Added by TW Conv) Lung disease Other 9 Family history of lung disease - (Added by TW Conv) Heart disease Paternal Grandfather Family history of cardiac disorder - (Added by TW Conv) Cancer Paternal Grandmother Family history of malignant neoplasm - (Added by TW Conv) Anesthesia problems Neg Hx Relation Name Status Comments Father Maternal Grandfather Maternal Grandmother Mother Other 1 Other 2 Other 3 Other 4 Other 5 Other 6 Other 7 Other 8 Other 9 Paternal Grandfather Paternal Grandmother Social History Tobacco Use Types Packs/Day Years Used Date Smoking Tobacco: Some Days Cigarettes 0.1 24 Started: 1990; Last attempted to quit: 2014 Smokeless Tobacco: Never Tobacco Cessation:Ready to Q uit: Not Asked; Counseling Given: Not Answered Alcohol Use Standard Drinks/Week Comments Not Currently 0 (1 standard drink = 0.6 oz pur e alcohol) AUDIT-C Answer Date Recorded Q1: How often do you have a drink containing alc ohol? 2-4 times a month 07/29/2023 Q2: How many drinks containi ng alcohol do you have on a typical day when you are drinking? 1 or 2 07/29/2023 Q3: How often do you have si x or more drinks on one occasion? Never 07/29/2023 PHQ-2 Answer Date Recorded PHQ-2 Total Score (If total score is 3 or more points, staff should administer the PHQ-9) 0 12/16/2020 Personal Safety Answer Date Recorded Have you ever been in or are you currently in a harmful physical or emotional relationship or is someone making you feel afraid or unsafe? 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 Gender Identity Female 06/04/2020 9:53 PM FARMWORKER FUR Sexual Orientation Not on file Obstetrics History Last Filed Vital Signs Vital Sign Reading Time Taken Comments Blood Pressure 133/72 07/29/2023 1:45 PM CDT Pulse 70 07/29/2023 1:45 PM CDT Temperature 36.7 C (98 F) 12/26/2020 10:17 AM CDT Respiratory Rate 24 07/29/2023 1:45 PM CDT Oxygen Saturation 99% 07/29/2023 1:45 PM CDT Inhaled Oxygen Concentration - - Weight 113.4 kg (250 lb) 07/29/2023 11:27 AM CDT Height 170.2 cm (5' 7 ) 07/29/2023 11:27 AM CDT Body Mass Index 39.16 07/29/2023 11:27 AM CDT Plan of Treatment Health Maintenance Due Date Last Done Comments Breast Cancer Screening-Mammogram 1978 Cervical Cancer Screening 1978 DTaP/Tdap/Td Vaccine (1 - Tdap) 1989 Hepatitis B Screening 1996 Regular Well Visit/Exam 18-64 1996 Pneumococcal vaccine <65 (1 of 2 - PCV) 1997 Depression Screening 12/16/2021 12/16/2020, 11/13/2020 Covid-19 Vaccine (3 - 2023-2 5 season) 2024 01/24/2021, 12/27/2020 Influenza Vaccine (#1) 2024 04/01/2020 Colon Cancer Screening-Colonoscopy 07/28/2033 07/29/2023, 12/01/2020 Hepatitis C Screening Completed 02/13/2020 HPV Vaccines Aged Out No longer eligi ble based on patient's age to complete this topic Goals Goal Patient Goal Type Associated Problems Recent Progress Patient-Stated? Author CCM Chronic Pain Care Plan Chronic Care Management No change(12/21 2:04 PM CDT) No Danyell Gonzalez Note: Problem: Chronic Pain Goals: 1. Minimize further functional decline 2. Maximize quality of life 3. Control pain Strategies: - Activity/exercise program recommendation - Conservative stepwise pain medicine strategy with multi-disciplinary approach - Recommend healthy lifestyle strategies and compensatory methods as needed Medical Devices Implanted Type Area Scouring Machine Tender Device Identifier Shelf Expiration Date Model / Serial / Lot Plate And Screws Right: Head Explanted Type Area Scouring Machine Tender Device Identifier Shelf Expiration Date Model / Serial / Lot [employer] 6571 Alfred Flexi-Stent 7fr 3cm Small Pigtail Flexible .035in Stent - [id number] Implanted:Qty : 1 on 05/26/2020 by Shahid Butcher MD at [facility] Explanted:Qty : 1 on 05/28/2020 by Shahid Butcher MD at [facility] Stent N/A: Pancreas [employer] 07/30/2024 [id number] / / [id number] Conmed Rah [id number] [place] Viabil 10mm 8.5fr 6cm 200cm Fully Covered Self Expand Pull - [id number] - [id number] Implanted:Qty : 1 on 05/26/2020 by Shahid Butcher MD at [facility] Explanted:Qty : 1 on 05/28/2020 by Shahid Butcher MD at [facility] Stent N/A: Bile Duct Conmed Rah 02/24/2023 [id number] / [id number] / Procedures Procedure Name Priority Date/Time Associated Diagnosis Comments COLONOSCOPY 07/29/2023 12:29 PM CDT HEPATITIS C ANTIBODY Routine 02/13/2020 1:35 PM CDT from Last 3 Months or Most Recently Relevant to Health Maintenance Results * Colonoscopy (07/29/2023 12:29 PM CDT) Anatomical Region Laterality Modality Other Narrative Procedure Note Roque Putnam MD - 07/29/2023 12:29 PM CDT [facility] Endoscopy Lab Patient Name: Ruby Tovar Procedure Date: 07/29/2023 12:29 PM Date of : 1980 Admit Type: Outpatient Age: 43 Gender: Female Note Status: Finalized Attending MD: Roque Putnam M.D. Procedure Date: 07/29/2023 Procedure: Colonoscopy Indications: High risk colon cancer surveillance: Personalhistory of colonic polyps, Last colonoscopy: November 2020 Providers: Roque Putnam M.D., Ese Parra CRNA (Anesthesia Staff), Kay Sherwood RN Referring MD: Waylon Pepe MD Medicines: Monitored Anesthesia Care Complications: No immediate complications. Estimated Blood Loss: Estimated blood loss: none. Procedure: Pre-Anesthesia Assessment: - Airway Examination: normal oropharyngeal airwayand neck mobility. - Respiratory Examination: clear to auscultation. - ASA Grade Assessment: III - A patient with severe systemic disease. - After reviewing the risks and benefits, thepatient was deemed in satisfactory condition to undergo the procedure. - The risks and benefits of the procedure and the sedation options and risks were discussed with the patient. All questions were answered and informed consent was obtained. After I obtained informed consent, the scope was passed under direct vision. Throughout theprocedure, the patient's blood pressure, pulse, and oxygen saturations were monitored continuously. The scopewas passed under direct vision. The Colonoscope was introduced through the anus and advanced to the the cecum, identified by the appendiceal orifice, ileocecal valve and palpation. The colonoscopy was performed with ease. The patient tolerated the procedure well. The quality of the bowelpreparation was good. The quality of the bowel preparation was evaluated using the BBPS ([place] Bowel Preparation Scale) with scores of: Right Colon = 3, Transverse Colon = 3 and Left Colon = 3 (entire mucosa seenwell with no residual staining, small fragments of stoolor opaque liquid). The total BBPS score equals 9. The bowel preparation used was SUPREP via split dose instruction. Bowel prep was administered using asplit dose. Findings: The perianal and digital rectal examinations were normal. Two sessile polyps were found in the ascending colon. The polyps were4 to 5 mm in size. These polyps were removed with a jumbo cold forceps. Resection and retrieval were complete. Estimated blood loss: none. The entire examined colon appeared normal on direct and retroflexion views. The retroflexed view of the distal rectum and anal verge was normaland showed no anal or rectal abnormalities. Impression: - Two 4 to 5 mm polyps in the ascending colon,removed with a jumbo cold forceps. Resected andretrieved. - The entire examined colon is normal on direct and retroflexion views. - The distal rectum and anal verge are normal on retroflexion view. Recommendation: - Discharge patient to home (ambulatory). - Await pathology results. - Repeat colonoscopy in 5 years for surveillance. Procedure Code(s): --- Professional --- 18139, Colonoscopy, flexible; with biopsy, singleor multiple Diagnosis Code(s): --- Professional --- Z86.010, Personal history of colonic polyps D12.2, Benign neoplasm of ascending colon CPT copyright 2020 [employer]. All rights reserved. The codes documented in this report are preliminary and upon setup operator reviewmay be revised to meet current compliance requirements. Electronically signed by Roque Putnam MD Roque Putnam M.D. 07/29/2023 1:06:32 PM Number of Addenda: 0 Note Initiated On: 07/29/2023 12:29 PM Roque Putnam MD ENDOSCOPY PROCEDURES Final Resul t * Hepatitis C antibody (02/13/2020 1:35 PM CDT) Hep C Ab Nonreactive Nonreactive [facility] Comment:Antibodies to HCV no t detected. Does NOT exclude the possibility of recent exposure to HCV. Blood specimen (specimen) 02/13/2020 1:35 PM CDT 02/13/2020 1:45 PM CDT Notinfile Unknown LAB MICROBIOLOGY - GENERAL ORD ERABLES Edited Result - Final [facility] Department [place] [address] from Last 3 Months or Most Recently Relevant to Health Maintenance Insurance [facility] ACCESS [place] ACCESS CHOICE WORKERS COMPENSATION GENERIC Advance Directives For more information, please contact: [phone] * Full Code (Latest Code Status on File) Date Activated Date Inactivated Comments 05/27/2020 7:17 AM 05/28/2020 8:51 PM * Full Code Date Activated Date Inactivated Comments 03/14/2020 12:16 PM 03/14/2020 5:42 PM * Full Code Date Activated Date Inactivated Comments 12/28/2017 12:01 PM 12/28/2017 2:55 PM Care Teams Crop Supervisor Relationship Specialty Start Date End Date Waylon Pepe MD [address] [facility] [address] [place] [address] PCP - General 03/28/17 Katharina Alfred RN Registered Nurse 03/30/18
--- OUTSIDE RECORDS SUMMARY | 2024-08-10 01:34 | XMS_ITS | Referral Summary ---
Author Organization [facility] Address [address] [place] [address] Care Team Providers Care Finisher Merchant Products Name Role Phone Waylon Pepe MD Primary Care Provider +1- [phone] Katharina Alfred RN Unavailable Unavailab le Allergies [...] (12/17/2020): Added automatically from request for surgery [id number] Rectal bleeding 11/13/2020 Overview (11/13/2020): Added automatically from request for surgery [id number] Moderate malnutrition 05/28/2020 Chronic cholecystitis without calculus [...] Administration Dates Next Due Influenza, Unspecified 04/01/2020 Social History Tobacco Use Types Packs/Day Years [...] on file 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 Gender Identity Female 06/04/2020 9:53 PM ELECTRONIC SPECIALIST Sexual Orientation Not on file Last Filed [...] 07/29/2023 11:27 AM CDT Plan of Treatment Not on file Goals Goal Patient Goal Type Associated Problems [...] as needed Medical Devices Implanted Type Area Technical Lead Device Identifier Shelf Expiration Date Model / Serial / Lot Plate And Screws Right: Head Explanted Type Area Technical Lead Device Identifier Shelf Expiration Date Model / Serial / Lot [employer] 6571 Alfred Flexi-Stent 7fr 3cm Small Pigtail Flexible .035in Stent - [id number] Implanted:Qty : 1 on 05/26/2020 by Shahid Butcher MD at [facility] Explanted:Qty : 1 on 05/28/2020 by Shahid Butcher MD at [facility] Stent N/A: Pancreas [employer] 07/30/2024 [id number] / / [id number] [place] Viabil 10mm 8.5fr 6cm 200cm Fully Covered Self Expand Pull - [id number] - [id number] Implanted:Qty : 1 on 05/26/2020 by Shahid Butcher MD at [facility] Explanted:Qty : 1 on 05/28/2020 by Shahid Butcher MD at [facility] Stent N/A: Bile Duct Conmed Rah 02/24/2023 [id number] / [id number] / Procedures Procedure Name Priority Date/Time Associated Diagnosis Comments COLONOSCOPY 07/29/2023 12:29 PM CDT HEPATITIS C ANTIBODY Routine 02/13/2020 1:35 PM CDT from Last 3 Months or Most Recently Relevant to Health Maintenance Results * Colonoscopy (07/29/2023 12:29 PM CDT) Anatomical Region Laterality Modality Other Narrative Procedure Note Roque Putnam MD - 07/29/2023 12:29 PM CDT [facility] Endoscopy Lab Patient Name: Ruby Tovar [...] bowel preparation was evaluated using the BBPS ([place] Bowel Preparation Scale) with scores of: Right [...] for surveillance. Procedure Code(s): --- Professional --- 70646, Colonoscopy, flexible; with biopsy, singleor multiple Diagnosis Code(s): --- Professional --- Z86.010, Personal history of colonic polyps D12.2, Benign neoplasm of ascending colon CPT copyright 2020 [employer]. All rights reserved. The codes documented in this report are preliminary and upon toolroom clerk reviewmay be revised to meet current compliance requirements. Electronically signed by Roque Putnam MD Roque Putnam M.D. 07/29/2023 1:06:32 PM Number of Addenda: 0 Note Initiated On: 07/29/2023 12:29 PM Roque Putnam MD ENDOSCOPY PROCEDURES Final Resul t * Hepatitis C antibody (02/13/2020 1:35 PM CDT) Hep C Ab Nonreactive Nonreactive [facility] Comment:Antibodies to HCV no t detected. Does NOT exclude the possibility of recent exposure to HCV. Blood specimen (specimen) 02/13/2020 1:35 PM CDT 02/13/2020 1:45 PM CDT us Notinfile Unknown LAB MICROBIOLOGY - GENERAL ORD ERABLES Edited Result - Final [facility] Department [place] [address] from Last 3 Months or Most Recently Relevant to Health Maintenance Insurance [employer] ACCESS [employer] ACCESS CHOICE WORKERS COMPENSATION GENERIC Advance Directives For more information, please contact: [phone] * Full Code (Latest Code Status on File) Date Activated Date Inactivated Comments 05/27/2020 7:17 AM 05/28/2020 8:51 PM * Full Code Date Activated Date Inactivated Comments 03/14/2020 12:16 PM 03/14/2020 5:42 PM * Full Code Date Activated Date Inactivated Comments 12/28/2017 12:01 PM 12/28/2017 2:55 PM Care Teams Finisher Merchant Products Relationship Specialty Start Date End Date Waylon Pepe MD [address] [facility] [address] [place] [address] PCP - General 03/28/17 Katharina Alfred, RN Registered Nurse 03/30/18
--- OUTSIDE RECORDS SUMMARY | 2024-08-10 01:34 | XMS_ITS | Clinical Summary ---
Author Organization [facility] Address [address] [place] [id number] Care Team Providers Care Work Over Rig Operator Name Role Phone Unavailable Primary Care Provider Unavailabl e Social History Tobacco Use Types Packs/Day Years Used Date Smoking Tobacco: Never Assessed Comments Unknown Sex and Gender Information Value Date Recorded Sex Assigned at Not on file Legal Sex Female 9:36 PM CDT Gender Identity Not on file Sexual Orientation Not on file Last Filed Vital Signs Vital Sign Reading Time Taken Comments Blood Pressure 124/78 04/22/2012 11:16 AM BAG BAILER Pulse 79 04/22/2012 11:16 AM BAG BAILER Temperature - - Respiratory Rate - - Oxygen Saturation - - Inhaled Oxygen Concentration - - Weight 122.5 kg (270 lb) 04/22/2012 11:16 AM BAG BAILER Height - - Body Mass Index - - Plan of Treatment Health Maintenance Due Date Last Done Comments Cervical Cancer Screening Pa p Smear (Age 30 to 64) Every 3 Years 1978 Colorectal Cancer Screening Colonoscopy (10 Years) 1978 Annual Physical 1981 Hepatitis C 1996 DTaP, Tdap and Td Vaccines ( 1 - Tdap) 1997 Hepatitis B Vaccines (1 of 3 - 19+ 3-dose series) 1997 Cervical Cancer Screening Pa p with HPV Testing (Age 30 to 64) Every 5 Years 2008 Cervical Cancer Screening with HPV 2008 Mammogram Screening 2018 COVID-19 Vaccine (2023-2 5 season) 2024 Meningococcal B Vaccine Aged Out No l onger eligible based on patient's age to complete this topic Meningococcal Vaccine Aged Out No ariel roseanne eligible based on patient's age to complete this topic Pneumococcal Vaccine: Pediat rics (0 to 5 Years) and At-Risk Patients (6 to 64 Years) Aged Out No longer eligible b ased on patient's age to complete this topic RSV Immunizations Under 20 Months Aged Out No longer eligible based on patient's age to complete this topic
--- OUTSIDE RECORDS SUMMARY | 2024-08-10 01:35 | XMS_ITS | Patient Health Record ---
Author Organization [facility] Address [address] [place] [address] Care Team Providers Care Oracle Application Architect Name Role Phone Terry Avila Primary Care Provider Unavaila nuria DAMON MD, JAYDEN Unavailable Waylon Pepe DO Unavailable Unavailable ALLERGIES Allergen (clinical drug ingredient) Drug/Non Drug Allergy documented on EMR Reaction Allergy Type Onset Date Status fentanyl Fentanyl Unknown Drug Allergy Active gabapentin Gabapentin rash Drug Allergy Activ e sumatriptan Imitrex Unknown Drug Allergy Activ e Levaquin Unknown Drug Allergy Active Vicodin Unknown Drug Allergy Active REASON FOR REFERRAL No Information MEDICATIONS Medication SIG (Take, Route, Frequency, Duration) Notes Start Date End Date Status Pantoprazole Sodium 40 MG 1 tablet Orally BID for 30 day(s) Active Amitriptyline HCl 10 MG 1 tablet PO QHS x 1 week then increase by 10 mg weekly until 50 mg reached and tolerated Orally Once a day at bedtime for 30 day(s) 07/25/2020 Active LORazepam 1 MG 1 tab Orally PRN Active Breo Ellipta 100-25 MCG/INH 1 puff Inhalation Once a day Active Ondansetron 4 MG 1 tablet on the tongue and allow to dissolve Orally Once a day Active Amitriptyline HCl 50 MG 1 tablet at bedtime Orally Once a day at bedtime for 30 day(s) 09/05/2020 Active oxyCODONE HCl 5 MG 1 tablet as needed Orally every 6 hrs Active Aimovig 140 MG/ML as directed Subcutaneous Active Zonisamide 50 MG 1 capsule Orally Twice a day Bedtime only Active Famotidine 40 MG 1 tablet at bedtime Orally at bedtime for 30 day(s) 05/09/2019 Active Ketorolac Tromethamine 10 MG 1 tablet with food or milk as needed Orally every 6 hrs Not-Taking Hyoscyamine Sulfate SL 0.125 MG 1-2 tablets under the tongue and allow to dissolve as needed Sublingual every 4-6 hrs as needed for abdominal pain for 30 days 09/19/2020 Active Montelukast Sodium 10 MG 1 tablet Orally Once a day for 30 day(s) Active Dicyclomine HCl 10 MG 1 capsule Orally 3 time a day for 90 days Not-Taking Amitriptyline HCl 50 MG 1 tablet at bedtime Orally Once a day for 90 days 09/24/2020 Active SOCIAL HISTORY Tobacco Use: Social History Observation Description Date Details (start date - stop date) Former Smoker NA - NA Sex Assigned At : Social History Observation Description Sex Assigned At Unknown Tobacco Use/Smoking Question Answer Notes Are you a former smoker How long has it been since y ou last smoked? 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 Metabolic Panel (14) 06/13/2020 CBC 06/13/2020 Endoscopic Retrograde Cholangiopancreato graphy (ERCP) 04/08/2020 Insurance Providers Payer Name Payer Address Payer Phone Subscriber Number Group Number Insured Name Patient Relationship to Insured Coverage Start Date Coverage End Date [facility] [address] [place], [place] [id number] Vuljulio césar Ruby Self - patient is the insured MEDICAL (GENERAL) HISTORY Medical History History ICD Code Migraines Chronic cholecystitis GERD Asthma Anxiety Complex regional pain syndrome on low do se naltrexone Hx meningioma s/p removal papillary stenosis/SOD Surgical History Surgery Date(Month/Year) Lap cholecystectomy 2015 EGD 2016 Tubal ligation and ablation Right frontal craniotomy 2013 Tonsillectomy Right knee arthroscopy Wrist surgery Appendectomy 2019 EGD/Colonoscopy 2010 Normal EUS 03/14/2020 [place] tiny hiatal hernia, gastric erythema, no path in the main OD and entire pancreas. No chronic pancreatitis. Dilated CBD up to 9 mm. Due to papillary stenosis. Path- mild gastritis, neg for HP. Duodenal bx neg. ERCP 05/26/2020 major papill a revealed a malrotated structure. Papillary stenosis. Biliary and pancreatic sphincterotomies and dual duct stenting. Stents removed 05/28/2020.
[2024-08-10 09:01] VITALS: BP 146/85; PULSE 76; RESP 18; TEMP 36.1; O2SAT 100
[2024-08-10] MEDS: LACTATED RINGERS 1,000 ML 150 ML IV CONT (09:10)
--- NOTE | 2024-08-10 09:15 | WPDANESEPPF ---
Anes - Initial Pre Proc Eval Procedure: Operation Date: 08/10/24 10:15 Proposed Procedures p Esophagogastroduodenoscopy - Bryan Saldana MD Date/Time: 08/10/24 09:15 Surgeon: Bryan Saldana MD Pre Op Diagnosis: GERD,Nausea,Early Satiety Patient Data Age: 44 Gender: F Height: 1.7 m Weight: 119.5 kg Last Vital Signs Temp 97 F L 08/10/24 09:01 Pulse 76 08/10/24 09:01 Resp 18 08/10/24 09:01 BP 146/85 H 08/10/24 09:01 Pulse Ox 100 08/10/24 09:01 O2 Del Method Room Air 08/10/24 09:01 Allergies Allergy/AdvReac Type Severity Reaction Status Date / Time gabapentin Allergy Intermediate Nausea and Verified 08/10/24 09:00 Vomiting levofloxacin Allergy Intermediate Dizziness Verified 08/10/24 09:00 fentanyl Allergy Unknown Itching Verified 08/10/24 09:00 hydrocodone AdvReac Intermediate Itching Verified 08/10/24 09:00 sumatriptan AdvReac Intermediate Dyspnea / Verified 08/10/24 09:00 SOB Home Medications ?Medication ?Instructions ?Recorded ?Confirmed ?Type albuterol sulfate 90 mcg/actuation 1 inh inhalation Q4-6H PRN 04/23/20 08/01/24 Rx aerosol inhaler (ProAir HFA) shortness of breath or wheezing #18 grams atogepant 60 mg tablet (Qulipta) 60 mg PO DAILY 09/13/22 08/10/24 History ketorolac 10 mg tablet 10 mg PO Q6H PRN pain 09/13/22 08/01/24 History rimegepant 75 mg disintegrating 75 mg PO ONCE PRN migraine headache 09/13/22 08/01/24 History tablet (Nurtec ODT) drospirenone (contraceptive) 4 mg 1 tablet PO DAILY #84 tabs 04/12/24 08/10/24 Rx (28) tablet (Slynd) metoclopramide HCl 10 mg tablet 10 mg PO ACHS #120 tabs 05/08/24 08/10/24 Rx (Reglan) pantoprazole 40 mg tablet,delayed See Rx Instructions .Route 05/08/24 08/10/24 Rx release .COMPLEX #30 tabs Breo Ellipta 100 mcg-25 mcg/dose 1 inh inhalation DAILY #180 06/15/24 08/10/24 Rx powder for inhalation (fluticasone blisters furoate-vilanterol) Patient hx anesthesia problems: none Family hx anesthesia problems: none Results Review: All pre-operative results and documents have been reviewed as part of the pre-operative evaluation. [facility] Past Medical History Medical History History of Helicobacter pylori infection SOB (shortness of breath) Sleep disturbances RUQ abdominal pain Oligouria Nausea Mass on back Lipoma of other specified sites Left foot pain Dysuria Diverticula, appendix Dietary counseling and surveillance (04/30/16) Chronic cholecystitis without calculus History of biliary stent insertion Biliary stenosis Anxiety History of torn meniscus of right knee Menometrorrhagia Endometriosis Trichomonas infection Chlamydia GERD (gastroesophageal reflux disease) Bronchitis Asthma Peripheral neuropathy 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 2013 History of tonsillectomy 2010 Family History Family History Father Hypertension Family history of chronic obstructive pulmonary disease Mass of kidney Mother Hypertension Sibling Patient's brother is in good health Hypertension Grandparent Breast cancer Alcoholism Heart disease Other Family history of elevated blood lipids Family history of malignant neoplasm Social History Social History Social History: Ms. Mary lives at home with her and children in [place]. 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 She reports occasional alcohol use. She is a former smoker; smoked 1ppd cigarettes x 20 years and quit in 2012. Denies other substance use. Code: Full code status POA: Reji Mary, her . PCP: Terry Calvillo PA-C. Smoking packs per day: 1 Smoking cigarettes per day: 20.0 Years smoked: 20 Smoking pack-years: 20.00 Smoking status: Current some day smoker Tobacco type: cigarettes and e-cigarettes/vaping Second hand tobacco smoke exposure: No Alcohol intake: current Substance use: never Substance use type: does not use Do You Feel Safe in your Home?: Yes Lack of Transportation: No Lack of Food: Never True Current Housing: I Have Housing Concerned About Future Housing: No Difficulty Paying Gas/Electric Bills: No Difficulty Paying for Meds: No Currently Unemployed: No Education: Bachelor's Degree Difficulty w/ Childcare or Family Care: No Living arrangements: with family Occupation/Education: occupation 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 Informed Consent: The patient's anesthetic plan and its attendant risks and benefits were discussed with the patient/family/POA. Questions were solicited and answers provided to the satisfaction of the patient/family/POA.
--- NOTE | 2024-08-10 09:42 | PM.HPGS ---
History of Present Illness History of Present Illness Consent: Risks, benefits, and alternatives have been discussed and questions answered. Patient agrees to proceed with procedure. Chief complaint: GERD,Nausea,Early Satiety Narrative: Ruby Mary is a 44 year old female here for egd, h/o chronic nausea and bloating, previous egd negative for celiac, s/p cholecystectomy, also had ERCP for possible SOD but complicated with pancreatitis. Never had GES. Review of Systems Review of Systems: All systems reviewed & are unremarkable except as noted in HPI and below PMFSH Past Medical History Medical History History of Helicobacter pylori infection SOB (shortness of breath) Sleep disturbances RUQ abdominal pain Oligouria Nausea Mass on back Lipoma of other specified sites Left foot pain Dysuria Diverticula, appendix Dietary counseling and surveillance (04/30/16) Chronic cholecystitis without calculus History of biliary stent insertion Biliary stenosis Anxiety History of torn meniscus of right knee Menometrorrhagia Endometriosis Trichomonas infection Chlamydia GERD (gastroesophageal reflux disease) Bronchitis Asthma Peripheral neuropathy 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 2013 History of tonsillectomy 2010 Family History Family History Father Hypertension Family history of chronic obstructive pulmonary disease Mass of kidney Mother Hypertension Sibling Patient's brother is in good health Hypertension Grandparent Breast cancer Alcoholism Heart disease Other Family history of elevated blood lipids Family history of malignant neoplasm Social History Social History Social History: Ms. Mary lives at home with her and children in [place]. 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 She reports occasional alcohol use. She is a former smoker; smoked 1ppd cigarettes x 20 years and quit in 2012. Denies other substance use. Code: Full code status POA: Reji Mary, her . PCP: Terry Calvillo PA-C. Smoking packs per day: 1 Smoking cigarettes per day: 20.0 Years smoked: 20 Smoking pack-years: 20.00 Smoking status: Current some day smoker Tobacco type: cigarettes and e-cigarettes/vaping Second hand tobacco smoke exposure: No Alcohol intake: current Substance use: never Substance use type: does not use Do You Feel Safe in your Home?: Yes Lack of Transportation: No Lack of Food: Never True Current Housing: I Have Housing Concerned About Future Housing: No Difficulty Paying Gas/Electric Bills: No Difficulty Paying for Meds: No Currently Unemployed: No Education: Bachelor's Degree Difficulty w/ Childcare or Family Care: No Living arrangements: with family Occupation/Education: occupation 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 Gender identity (if verbalized by the patient): Female Spiritual care concerns: No Meds Home Medications and Allergies Home Medications ?Medication ?Instructions ?Recorded ?Confirmed ?Type albuterol sulfate 90 mcg/actuation 1 inh inhalation Q4-6H PRN 04/23/20 08/01/24 Rx aerosol inhaler (ProAir HFA) shortness of breath or wheezing #18 grams atogepant 60 mg tablet (Qulipta) 60 mg PO DAILY 09/13/22 08/10/24 History ketorolac 10 mg tablet 10 mg PO Q6H PRN pain 09/13/22 08/01/24 History rimegepant 75 mg disintegrating 75 mg PO ONCE PRN migraine headache 09/13/22 08/01/24 History tablet (Nurtec ODT) drospirenone (contraceptive) 4 mg 1 tablet PO DAILY #84 tabs 04/12/24 08/10/24 Rx (28) tablet (Slynd) metoclopramide HCl 10 mg tablet 10 mg PO ACHS #120 tabs 05/08/24 08/10/24 Rx (Reglan) pantoprazole 40 mg tablet,delayed See Rx Instructions .Route 05/08/24 08/10/24 Rx release .COMPLEX #30 tabs Breo Ellipta 100 mcg-25 mcg/dose 1 inh inhalation DAILY #180 06/15/24 08/10/24 Rx powder for inhalation (fluticasone blisters furoate-vilanterol) Allergies Allergy/AdvReac Type Severity Reaction Status Date / Time gabapentin Allergy Intermediate Nausea and Verified 08/10/24 09:00 Vomiting levofloxacin Allergy Intermediate Dizziness Verified 08/10/24 09:00 fentanyl Allergy Unknown Itching Verified 08/10/24 09:00 hydrocodone AdvReac Intermediate Itching Verified 08/10/24 09:00 sumatriptan AdvReac Intermediate Dyspnea / Verified 08/10/24 09:00 SOB Vital Signs Vital Signs - 24 hr 08/10/24 09:01 Temperature 97 F L Pulse Rate 76 Respiratory Rate 18 Blood Pressure 146/85 H Pulse Oximetry 100 Oxygen Delivery Room Air Exam Const: General: comfortable and no acute distress HENMT: Face/Nose/Sinus: Normal nares present Eyes: General: appearance normal, both eyes and all related structures Neck: Neck: no JVD Resp: Auscultation: clear to auscultation bilaterally Cardio: Rate: regular rate Rhythm: regular rhythm GI: Inspection: non-distended GI Palp: Yes Soft to palpation Skin: General skin exam: normal color Neuro: Speech: normal speech Extrem: General: normal to inspection Psych: Mental Status: mental status grossly normal Assessment and Plan Assessment and plan (1) Dyspepsia: Code(s): R10.13 - Epigastric pain Status: Acute (2) Nausea: Code(s): R11.0 - Nausea Status: Acute Assessment and Plan: egd with bx consider GES as outpatient
[2024-08-10 09:48] VITALS: BP 118/69; PULSE 81; RESP 23; O2SAT 100
[2024-08-10 09:58] VITALS: BP 119/77; PULSE 77; RESP 24; O2SAT 100
[2024-08-10 10:08] VITALS: BP 133/69; PULSE 70; RESP 22; O2SAT 100
== END 2024-08-10 10:19 | disposition home or self-care (01) ==
PROVIDERS: PCP Internal Medicine; Referring Provider Nurse Practitioner; Visit Provider Internal Medicine Gastroenterology
PROC: 0DJ08ZZ Inspection of Upper Intestinal Tract, Via Natural or Artificial Opening Endoscopic (ICD-10-PCS; CPT 43239; principal; 2024-08-10 10:15)
DX: K21.9 Gastro-esophageal reflux disease without esophagitis (principal); J45.909 Unspecified asthma, uncomplicated; F41.9 Anxiety disorder, unspecified; N80.9 Endometriosis, unspecified; G47.9 Sleep disorder, unspecified; G62.9 Polyneuropathy, unspecified; E66.01 Morbid (severe) obesity due to excess calories; Z68.41 Body mass index [BMI] 40.0-44.9, adult; Z79.51 Long term (current) use of inhaled steroids; Z98.890 Other specified postprocedural states; Z90.49 Acquired absence of other specified parts of digestive tract; Z98.891 History of uterine scar from previous surgery; Z98.51 Tubal ligation status; Z87.891 Personal history of nicotine dependence; Z87.19 Personal history of other diseases of the digestive system; Z80.3 Family history of malignant neoplasm of breast; Z82.49 Family history of ischemic heart disease and other diseases of the circulatory system
CPT/HCPCS: 43239; 88305; J2704; J7120

== ENCOUNTER 2025-04-09 07:45 | Outpatient (CLI) | payer BC, SELFPAY | END 2025-04-10 09:54 | disposition home or self-care (01) | PROVIDERS: PCP Internal Medicine; Visit Provider Nurse Practitioner Family | DX: R40.0 Somnolence (principal) | CPT/HCPCS: 95800 ==

== ENCOUNTER 2025-04-17 13:44 | Outpatient (CLI) | payer BC, SELFPAY ==
--- NOTE | ~2025-04-17 | XR_ITS ---
Examination: XR chest 2V Clinical History: R07.81 - Pleurodynia Comparison: None Technique: PA and Lateral Findings: Cardiomediastinal silhouette normal size and configuration. Minimal left basilar streaky opacity. No acute bony abnormality. IMPRESSION: 1. Minimal left basilar atelectasis and/or pneumonitis. Reviewed, dictated and finalized at location R. LITHOGRAPHER
[2025-04-17 14:54] LABS: Influenza A QL RT-PCR Positive (Negative); Influenza B QL RT-PCR Negative (Negative); RSV RNA, RT-PCR Negative (Negative); SARS-CoV-2 RNA PCR Negative (Negative)
--- OUTSIDE RECORDS SUMMARY | 2025-04-17 16:15 | XMS_ITS | Clinical Summary ---
Author Organization [email or web address] Address [address] [place] [address] Care Team Providers Care Chicken Catcher Name Role Phone Ángel Guerrero Primary Care Provider [phone] Source Comments [email or web address],non-owned Affiliates and Associated Physician Practices is amultiple site organization consisting of ambulatory clinics and hospital sitesin [place], [place], [place] and [place]. This disclosure is being madepursuant to the Care Everywhere program and may not contain all information available regarding this patient. Last updated 18.[email or web address] Allergies Active Allergy Reactions Criticality Noted Date [...] document. Alwaysverify current medications with the patient. Qulipta 60 MG TABS Take 1 (one) tablet by mouth at bedtime 4 Active pantoprazole EC (Protonix) 40 MG tablet Take 1 (one) tablet by mouth at bedtime 4 Active metoclopramide (Reglan) 10 MG tablet Take 1 (one) tablet by mouth as needed 3 Active ketorolac (Toradol) 10 MG tablet Take 1 (one) tablet by mouth as needed for Pain 4 Active Rimegepant Sulfate (NURTEC PO) Take 75 [...] Grams (4000 mg) / 24 hours. Active diphenhydrAMIN E HCl (BENADRYL ALLERGY CHILDRENS PO) Take 1 tablet by mouth as needed Active Drospirenone (Slynd) 4 MG TABS tablet 4 mg 5 Active Active Problems No known active problems Encounters Date Type Department Care Team Description 01/18/2025 2:00 PM CDT Office Visit [facility] - ENT [address] [place] [phone] Sincere Koenig, [place] [employer]AS[employer]OOM TUTOR[employer]MA[employer] DYER Thyroid nodule (Primary Dx); Otalgia, bilateral; Bruxism; Arthralgia of left temporomandibular joint; Tobacco use; H/O migraine; Globus sensation 01/18/2025 Travel 01/17/2025 Travel from Last 3 Months Immunizations Immunization Administration Dates Next Due INFLUENZA VACCINE 04/01/2020 [...] drink = 0.6 oz pur e alcohol) Comments Unknown Sex and Gender Information Value Date Recorded Sex Assigned at Female 01/04/2024 11:02 AM CDT Legal Sex Female 4:04 AM CDT Gender Identity Female 01/04/2024 11:02 AM CDT Sexual Orientation Not on file Last Filed Vital Signs Vital Sign Reading Time Taken Comments Blood Pressure 156/102 01/18/2025 2:04 PM CDT Pulse 96 01/18/2025 2:04 PM CDT Temperature - - Respiratory Rate - - Oxygen Saturation 98% 01/18/2025 2:04 PM CDT Inhaled Oxygen Concentration - - Weight 122.5 kg (270 lb) 01/18/2025 2:04 PM CDT Height 170.2 cm (5' 7) 01/11/2024 8:59 AM CDT Body Mass Index 42.29 01/11/2024 8:59 AM CDT Plan of Treatment Health Maintenance Due Date Last Done Comments COLOGUARD (AGES 45-75) - COL ON CA SCREENING 1978 CT COLONOGRAPHY - COLON CA SCREENING 1978 FIT - COLON CA SCREENING 1978 FLEX SIG - COLON CA SCREENING 1978 LIPID TESTING 1978 MAMMOGRAM 1978 HIV SCREENING 1993 HEPATITIS C SCREENING 04/11/1996 DTAP/TDAP/TD VACCINES (1 - Tdap) 1997 HEPATITIS B VACCINE (1 of 3 - 19+ 3-dose series) 1997 PNEUMOCOCCAL VACCINE (1 of 2 - PCV) 1997 PAP SMEAR 1999 DEPRESSION SCREENING 05/02/2024 COVID-19 VACCINE (3 - 2024-2 6 season) 2024 01/24/2021, 12/27/2020 INFLUENZA VACCINE (#1) 2024 04/01/2020 ZOSTER VACCINE (1 of 2) 2028 COLON MONITORING 07/28/2033 07/29/2023 COLONOSCOPY - COLON CA SCREENING 07/28/2033 07/29/2023 [...] on patient's age to complete this topic Procedures Procedure Name Priority Date/Time Associated Diagnosis Comments MD LARYNGOSCOPY FLEXIBLE DIAGNOSTIC Routine 01/18/2025 4:29 PM CDT Otalgia, bilateral Tobacco use Globus sensation from Last 3 Months Results * MD LARYNGOSCOPY FLEXIBLE DIAGNOSTIC (01/18/2025 4:29 PM CDT) Narrative Sincere Koenig APRN-CNP - 01/18/2025 4:29 PM CDT Sincere Koenig APRN-CNP 01/18/2025 4:31 PM Procedure Note Anesthesia: Lidocaine 2% and Darrick-Synephrine 1/2% Endoscopy Type: Flexible Vlmqk-[id number]-Ryiztbmpeucv Procedure Details: Informed consent was obtained. The patient was placed in the sitting position. After topical anesthesia and decongestion, the 4 mm laryngoscope was passed. The nasal cavities, nasopharynx, oropharynx, hypopharynx, and larynx were all examined. Vocal cords were examined during respiration and phonation. The following findings were noted: 1) Significant right nasal valve collapse 2) Moderate leftward septal deviation 3) Nasopharynx clear and intact 4) Prominent but healthy lingual tonsil tissue 5) Mild supraglottic squeezing but otherwise TVCs intact and mobile symmetrically 6) No masses/lesions, purulence, fungus The patient tolerated procedure well. No blood loss Complications: None Sincere STREETER PROCEDURE/[facility]OR [place] RGICAL ORDERABLES Final Result from Last 3 Months Insurance MUKESH ANTHEM SELF PAY NO INSURANCE Member Subscriber Plan / Payer (Ef fective for All Dates) Name:Ruby Tovar Member ID:Not on file Relation to Subscriber:Not on file Name:RUBY TOVAR Subscriber ID:Not on file (Home) Address: [address] [place] [address] Payer ID:Not on file Group ID:Not on file Type:Self Pay Address: [place], [place] Care Teams Chicken Catcher Relationship Specialty Start Date End Date Ángel Guerrero DO [address] [place], [place] [address] PCP - General Internal Medicine 01/18/25
--- OUTSIDE RECORDS SUMMARY | 2025-04-17 16:15 | XMS_ITS | Clinical Summary ---
Author Organization [facility] Address [address] [place] [id number] Care Team Providers Care Car Trimmer Name Role Phone Unavailable Primary Care Provider [...] Comments Blood Pressure 124/78 04/22/2012 11:16 AM ENGLISH AS A SECOND LANGUAGE INSTRUCTOR Pulse 79 04/22/2012 11:16 AM ENGLISH AS A SECOND LANGUAGE INSTRUCTOR Temperature - - Respiratory Rate - - Oxygen Saturation - - Inhaled Oxygen Concentration - - Weight 122.5 kg (270 lb) 04/22/2012 11:16 AM ENGLISH AS A SECOND LANGUAGE INSTRUCTOR Height - - Body Mass Index - [...] HPV 2008 Mammogram Screening 2018 COVID-19 Vaccine (2024-2 6 season) 2024 Influenza Adult (#1) 2025 Hepatitis A Vaccines Aged Out No long er eligible based on patient's age to complete this topic Meningococcal B Vaccine Aged Out No l onger eligible based on patient's age to complete this topic Meningococcal Vaccine Aged Out No ariel roseanne eligible based on patient's age to complete this topic Pneumococcal Vaccine: Pediat rics (0 to 5 Years) and At-Risk Patients (6 to 49 Years) Aged Out No longer eligible b ased on patient's age to complete this topic RSV Immunizations Under 20 Months Aged Out No longer eligible based on patient's age to complete this topic
--- OUTSIDE RECORDS SUMMARY | 2025-04-17 16:15 | XMS_ITS | Patient Health Record ---
Author Organization [facility] Address [address] [place] [address] Care Team Providers Care Industrial Millwright Name Role Phone Terry Avila Primary Care Provider Unavaila nuria DAMON MD, JAYDEN Unavailable [phone] Waylon Pepe DO Unavailable Unavailable Allergies Allergen (clinical drug ingredient) Drug/Non Drug Allergy documented on EMR Reaction Allergy Type Onset Date Status fentanyl Fentanyl Unknown Drug Allergy Active gabapentin Gabapentin rash Drug Allergy Activ e sumatriptan Imitrex Unknown Drug Allergy Activ e Levaquin Unknown Drug Allergy Active Vicodin Unknown Drug Allergy Active Reason For Referral No Information Medications Medication SIG (Take, Route, Frequency, Duration) Notes Start Date End Date Status Pantoprazole Sodium 40 MG 1 tablet Orally BID; Duration: 30 day(s) Active Amitriptyline HCl 10 MG 1 tablet PO QHS x 1 week then increase by 10 mg weekly until 50 mg reached and tolerated Orally Once a day at bedtime; Duration: 30 day(s) 07/25/2020 Active LORazepam 1 MG 1 tab Orally PRN Active Breo Ellipta 100-25 MCG/INH 1 puff Inhalation Once a day Active Ondansetron 4 MG 1 tablet on the tongue and allow to dissolve Orally Once a day Active Amitriptyline HCl 50 MG 1 tablet at bedtime Orally Once a day at bedtime; Duration: 30 day(s) 09/05/2020 Active oxyCODONE HCl 5 MG 1 tablet as needed Orally every 6 hrs Active Aimovig 140 MG/ML as directed Subcutaneous Active Zonisamide 50 MG 1 capsule Orally Twice a day Bedtime only Active Famotidine 40 MG 1 tablet at bedtime Orally at bedtime; Duration: 30 day(s) 05/09/2019 Active Ketorolac Tromethamine 10 MG 1 tablet with food or milk as needed Orally every 6 hrs Not-Taking Hyoscyamine Sulfate SL 0.125 MG 1-2 tablets under the tongue and allow to dissolve as needed Sublingual every 4-6 hrs as needed for abdominal pain; Duration: 30 days 09/19/2020 Active Montelukast Sodium 10 MG 1 tablet Orally Once a day; Duration: 30 day(s) Active Dicyclomine HCl 10 MG 1 capsule Orally 3 time a day; Duration: 90 days Not-Taking Amitriptyline HCl 50 MG 1 tablet at bedtime Orally Once a day; Duration: 90 days 09/24/2020 Active Social History Tobacco Use: Social History Observation Description Date Details (start date - stop date) Former Smoker NA - NA Tobacco Use/Smoking Question Answer Notes Are you a former smoker How long has it been since y ou last smoked? 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 Metabolic Panel (14) 06/13/2020 CBC 06/13/2020 Endoscopic Retrograde Cholangiopancreato graphy (ERCP) 04/08/2020 Insurance Providers Payer Name Payer Address Payer Phone Subscriber Number Group Number Insured Name Patient Relationship to Insured Coverage Start Date Coverage End Date [facility] [address] [place], [place] [id number] Vuljulio césar, Ruby Self - patient is the insured Medical (General) History Medical History History ICD Code Migraines Chronic [...]
--- OUTSIDE RECORDS SUMMARY | 2025-04-17 16:15 | XMS_ITS | Clinical Summary ---
Author Organization [facility] Address [address] [place] [address] Care Team Providers Care Warehouse Analyst Name Role Phone Waylon Pepe MD Primary Care Provider [phone] Katharina Alfred RN Unavailable Unavailab le Allergies [...] (12/17/2020): Added automatically from request for surgery [id number] Rectal bleeding 11/13/2020 Overview (11/13/2020): Added automatically from request for surgery [id number] Moderate malnutrition 05/28/2020 Chronic cholecystitis without calculus [...] ligament laxity of right wrist 0 11/14/2017 Encounters Date Type Department Care Team Description 02/23/2025 Documentation Critical Care Medicine Shanda Mai MD from Last 3 Months Immunizations Immunization Administration Dates Next Due Influenza, [...] on file Legal Sex Female 3:31 AM PATIENT EXPERIENCE COORDINATOR Gender Identity Female 06/04/2020 9:53 PM PATIENT EXPERIENCE COORDINATOR Sexual Orientation Not on file Last Filed [...] 11:27 AM CDT Height 170.2 cm (5' 7) 07/29/2023 11:27 AM CDT Body Mass Index 39.16 07/29/2023 11:27 AM CDT Plan of Treatment Health Maintenance Due Date Last Done Comments Breast Cancer Screening-Mammogram 1978 Cervical Cancer Screening 1978 DTaP/Tdap/Td Vaccine (1 - Tdap) 1989 Hepatitis B Screening 1996 Regular Well Visit/Exam 18-64 1996 Pneumococcal vaccine <65 (1 of 2 - PCV) 1997 Depression Screening 12/16/2021 12/16/2020, 11/13/2020 Covid-19 Vaccine (3 - 2024-2 6 season) 2024 01/24/2021, 12/27/2020 Influenza Vaccine (#1) [...] as needed Medical Devices Implanted Type Area Burlap Bag Sewer Device Identifier Shelf Expiration Date Model / Serial / Lot Plate And Screws Right: Head Explanted Type Area Burlap Bag Sewer Device Identifier Shelf Expiration Date Model / Serial / Lot [employer] 6571 Alfred Flexi-Stent 7fr 3cm Small Pigtail Flexible .035in Stent - [id number] Implanted:Qty : 1 on 05/26/2020 by Shahid Butcher MD at [facility] Explanted:Qty : 1 on 05/28/2020 by Shahid Butcher MD at [facility] Stent N/A: Pancreas [employer] 07/30/2024 [id number] / / [id number] Conmed Rah [id number] [place] Viabil 10mm 8.5fr 6cm 200cm Fully Covered Self Expand Pull - [id number] - [id number] Implanted:Qty : 1 on 05/26/2020 by Shahid Butcher MD at [facility] Explanted:Qty : 1 on 05/28/2020 by Shahid Butcher MD at [facility] Stent N/A: Bile Duct Conmed Rah 02/24/2023 [id number] / [id number] / Procedures Procedure Name Priority Date/Time Associated Diagnosis Comments COLONOSCOPY 07/29/2023 12:29 PM CDT HEPATITIS C ANTIBODY Routine 02/13/2020 1:35 PM CDT from Last 3 Months or Most Recently Relevant to Health Maintenance Results * Colonoscopy (07/29/2023 12:29 PM CDT) Anatomical Region Laterality Modality Other Narrative Procedure Note Roque Putnam MD - 07/29/2023 12:29 PM CDT [facility] Patient Name: Ruby Tovar Procedure [...] bowel preparation was evaluated using the BBPS ([place] Bowel Preparation Scale) with scores of: Right [...] for surveillance. Procedure Code(s): --- Professional --- 02439, Colonoscopy, flexible; with biopsy, singleor multiple Diagnosis Code(s): --- Professional --- Z86.010, Personal history of colonic polyps D12.2, Benign neoplasm of ascending colon CPT copyright 2020 [employer]. All rights reserved. The codes documented in this report are preliminary and upon animal feeder reviewmay be revised to meet current compliance requirements. Electronically signed by Roque Putnam MD Roque Putnam M.D. 07/29/2023 1:06:32 PM Number of Addenda: 0 Note Initiated On: 07/29/2023 12:29 PM us Roque Putnam MD ENDOSCOPY PROCEDURES Final Resul t * Hepatitis C antibody (02/13/2020 1:35 PM CDT) Hep C Ab Nonreactive Nonreactive [facility] WHITE Comment:Antibodies to HCV no t detected. Does NOT exclude the possibility of recent exposure to HCV. Blood specimen (specimen) 02/13/2020 1:35 PM CDT 02/13/2020 1:45 PM CDT Notinfile Unknown LAB MICROBIOLOGY - GENERAL ORD ERABLES Edited Result - [facility] Department [place] [address] from Last 3 Months or Most Recently Relevant to Health Maintenance Insurance [employer] [address] [place] [id number] WORKERS COMPENSATION GENERIC Advance Directives For more information, please contact: [phone] * Full Code (Latest Code Status on File) Date Activated Date Inactivated Comments 05/27/2020 7:17 AM 05/28/2020 8:51 PM * Full Code Date Activated Date Inactivated Comments 03/14/2020 12:16 PM 03/14/2020 5:42 PM * Full Code Date Activated Date Inactivated Comments 12/28/2017 12:01 PM 12/28/2017 2:55 PM Care Teams Warehouse Analyst Relationship Specialty Start Date End Date Waylon Pepe MD [address] [place] [address] PCP - General 03/28/17 Katharina Alfred, RN Registered Nurse 03/30/18
== END 2025-04-17 13:45 | disposition home or self-care (01) ==
PROVIDERS: PCP Internal Medicine; Visit Provider Nurse Practitioner Family
DX: R07.81 Pleurodynia (principal); R50.9 Fever, unspecified; R91.8 Other nonspecific abnormal finding of lung field
CPT/HCPCS: 71046; 87637